=== PATIENT | female | born 2000 | race Caucasian/White ===

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

== ENCOUNTER → 2022-09-09 | Outpatient (CLI) | payer MEDICAID, OTHER ==
[2022-09-09 14:40] LABS: Basophils # (A) 0.03 X 10*3/uL (0.00-0.10); Basophils % (A) 0.3 %; Eosinophils # (A) 0.15 X 10*3/uL (0.04-0.35); Eosinophils % (A) 1.7 %; HCT 40.2 % (37.2-46.3); HGB 11.4 g/dL (12.0-15.0); Immature Grans, Automated 0.3 %; Lymphocytes # (A) 1.96 X 10*3/uL (0.90-5.00); Lymphocytes % (A) 22.2 %; MCH 21.2 pg (27.0-32.0); MCHC 28.4 g/dL (32.0-37.0); MCV 74.9 fL (80.0-97.0); Mean Platelet Volume 10.2 fL (9.5-12.2); Monocytes % (A) 4.5 %; NRBC Per 100 WBC 0 /100 WBCS (0.0-0.0); Neutrophils # (A) 6.26 X 10*3/uL (1.80-7.70); Platelet Count 350 X 10*3/uL (140-440); RBC 5.37 X 10*6/uL (4.10-5.20); RDW 20.3 % (11.5-14.5); WBC 8.83 X 10*3/uL (4.50-10.00)
[2022-09-09 15:29] LABS: % Iron Saturation 5.95 (12.00-45.00); ALT 29 U/L (8-44); AST 24 U/L (13-35); African American GFR (CKD) 142.1 (60.0-200.0); Albumin/Globulin Ratio 1.16 (1.60-3.17); Alkaline Phosphatase 69 U/L (41-126); BUN/Creat Ratio 12.42 Ratio (12.00-20.00); Blood Urea Nitrogen 8.8 mg/dL (9.0-27.0); Calcium 9.6 mg/dL (8.7-10.3); Carbon Dioxide 20.7 mmol/L (20.0-27.5); Chloride 105 mmol/L (96-109); Ferritin 50.7 ng/mL (10.0-291.0); Globulin 3.5 g/dL (1.6-3.3); Glucose 83 mg/dL (70-110); Iron 20 ug/dL (50-170); Non-African American GFR(CKD) 122.6 (60.0-200.0); Potassium 4.4 mmol/L (3.5-5.5); Sodium 139 mmol/L (135-145); Total Iron Binding Capacity 336 ug/dL (228-460); Total Protein 7.5 g/dL (6.2-8.2)
== END | disposition home or self-care (01) ==
LOC: LABWHC1 10:32
PROVIDERS: ATTEND Family Medicine
DX: Z09 Encounter for follow-up examination after completed treatment for conditions other than malignant neoplasm (principal); I82.403 Acute embolism and thrombosis of unspecified deep veins of lower extremity, bilateral; I82.422 Acute embolism and thrombosis of left iliac vein; R20.8 Other disturbances of skin sensation
CPT/HCPCS: 36415; 80053; 82607; 82728; 83036; 83540; 83550; 84443; 85025

== ENCOUNTER 2022-11-14 22:03 | Emergency (ER) | payer MEDICAID, OTHER ==
[2022-11-14 22:09] VITALS: TEMP 97.9
[2022-11-14] MEDS ORDERED: ASPIRIN 81 MG PO STA (22:25)
[2022-11-14] MEDS ORDERED: KETOROLAC 15 MG/ML 1 ML VIAL IVP STA (22:26)
[2022-11-14 23:01] LABS: Basophils # (A) 0.1 k/uL (0-0.2); Basophils % (A) 1 %; Eosinophils # (A) 0.2 k/uL (0-0.7); Eosinophils % (A) 2 %; HCT 37.2 % (34.0-46.0); HGB 11.4 gm/dL (11.4-16.0); Hypochromasia Moderate; Lymphocytes # (A) 2.5 k/uL (1.0-4.8); Lymphocytes % (A) 27 %; MCH 21.8 pg (25.0-35.0); MCHC 30.6 g/dL (31.0-37.0); MCV 71.2 fL (80.0-100.0); Mean Platelet Volume 7.5; Microcytosis Moderate; Monocytes # (A) 0.4 k/uL (0-1.0); Monocytes % (A) 4 %; Neutrophils # (A) 6.2 k/uL (1.3-7.7); Neutrophils % (A) 66 %; Platelet Count 342 k/uL (150-450); RBC 5.23 m/uL (3.80-5.40); RDW 15.6 % (11.5-15.5); WBC 9.4 k/uL (4.0-11.0)
[2022-11-14 23:09] LABS: African American GFR (CKD) >90 (>60 ml/min/1.73 sqM); Amylase 43 U/L (30-110); Anion Gap 10 mmol/L; Blood Urea Nitrogen 15 mg/dL (7-17); Carbon Dioxide 23 mmol/L (22-30); Chloride 107 mmol/L (98-107); Glucose 111 mg/dL (74-99); Non-African American GFR(CKD) >90 (>60 ml/min/1.73 sqM); Sodium 140 mmol/L (137-145); Total Protein 7.6 g/dL (6.3-8.2)
[2022-11-14 23:10] LABS: ALT 19 U/L (4-34); AST 15 U/L (14-36); Alkaline Phosphatase 68 U/L (38-126); Calcium 9.2 mg/dL (8.4-10.2); Lipase 95 U/L (23-300); Magnesium 2.1 mg/dL (1.6-2.3); Total Bilirubin 0.3 mg/dL (0.2-1.3)
[2022-11-14 23:32] VITALS: BP 136/72; PULSE 100; RESP 12
[2022-11-14 23:33] LABS: INR 0.9 (<1.2); Partial Thromboplastin Time 26.1 sec (22.0-30.0); Prothrombin Time 9.7 sec (9.0-12.0)
--- NOTE | 2022-11-14 23:44 | XR ---
EXAMINATION TYPE: XR chest 2V DATE OF EXAM: 11/14/2022 COMPARISON: None HISTORY: Chest pain TECHNIQUE: 2 views FINDINGS: Heart and mediastinum are normal. Lungs are clear. Diaphragm is normal. Bony thorax appears normal. IMPRESSION: Normal chest.
--- NOTE | 2022-11-14 23:46 | ED ---
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 Describes it as a tightness sensation located substernally with radiation towards both sides of her chest. Also has had some shortness of breath over the last day or so. Does have a h istory of PE. Her mother as well as her concerned that she may have a PE despite being compliant with anticoagulation. There is any worsening lower extremity edema. Denies any nausea or vomiting. Denies any abdominal pain. Denies any headaches. No other acute complaints at this time. No other symptoms at this time. Denies cough or fevers. Presents for further evaluation at this time. Blood clotting disorders run in the family.No known palliative or provocative factors for her symptoms. - Related Data Previous Rx's Medication Instructions Recorded Apixaban [Eliquis Starter Pack 5 - 10 mg PO DIRECTED 30 Days 08/06/22 (for VTE)] #1 each Docusate [Colace] 100 mg PO DAILY PRN #30 cap 08/06/22 Ferrous Sulfate [Iron (65 MG 325 mg PO DAILY #30 tab 08/06/22 Elemental)] HYDROcodone/APAP 5-325MG [[place] 1 each PO Q6HR PRN 3 Days #12 tab 08/06/22 5-325] Allergies Allergy/AdvReac Type Severity Reaction Status Date / Time No Known Allergies Allergy Verified 11/14/22 22:04 Review of Systems ROS Statement: Those systems with pertinent positive or pertinent negative responses have been documented in the HPI. Review of Systems: CONST: Denies fever EYES: Denies blurry vision ENT: Denies nasal congestion C/V: Endorses intermittent chest pain RESP: Endorses shortness of breath GI: Denies abdominal pain : Denies dysuria SKIN: Denies rash. MSK: Denies joint pain. NEURO: Denies headache ROS Other: All systems not noted in ROS Statement are negative. Past Medical History Past Medical History: Deep Vein Thrombosis (DVT), Pulmonary Embolus (PE) Additional Past Medical History / Comment(s): OPTIC NERVE HYPOPLASIA History of Any Multi-Drug Resistant Organisms: None Reported Past Surgical History: No Surgical Hx Reported Past Anesthesia/Blood Transfusion Reactions: No Reported Reaction Past Psychological History: No Psychological Hx Reported Smoking Status: Never smoker Past Alcohol Use History: None Reported Past Drug Use History: None Reported General Exam - General Exam Comments Initial Comments: General: Appears in no acute distress.. Patient is obese. HEAD: Normal with no signs of head trauma. EYES: Blind legally. No change. ENT: Hearing grossly intact, normal oropharynx. RESPIRATORY: Clear breath sounds bilaterally. No wheezes, rales, or rhonchi. No respiratory distress. No hypoxia. C/V: Regular rate and rhythm. S1 and S2 auscultated, no edema, peripheral pulses 2+ and intact throughout ABD: Abd is soft, nontender, nondistended EXT: Normal range of motion, no obvious deformity SKIN: No rashes or lesions observed on exposed skin. NEURO: Alert and oriented x 4. No acute focal deficits. Limitations: no limitations Course Vital Signs 11/14/22 11/14/22 11/14/22 22:04 22:54 23:30 Temperature 97.9 F Pulse Rate 109 H 100 Pulse Rate [ 104 H Apical] Respiratory 18 12 Rate Blood Pressure 143/79 136/72 O2 Sat by Pulse 98 98 Oximetry Medical Decision Making - Medical Decision Making Based on the patient's presentation and physical exam, I'm concerned for possible cardiopulmonary etiology for her current symptoms. Family and patient are concerned for possible blood clot is noted is possible to have breakthrough blood clots despite being compliant with anticoagulation. They're requesting workup for possible blood clot. We'll start with a d-dimer in addition to cardiology labs. They were in agreement this plan. Covid, flu, RSV swabs will be obtained as well. Chest x-ray will be obtained. Patient was in agreement this plan. Vital signs within acceptable limits. No respiratory distress. She will receive Toradol as well as aspirin. EKG showed no signs of acute ischemia.Patient's chest x-ray revealed no acute cardio pulmonary process. Laboratory studies are remarkable for a undetectable troponin. BNP within normal limits. D-dimer is undetectable. Patient has flu, RSV, Covid negative. At this time I updated the patient. We discussed her negative workup. She said multiple days of chest pain symptoms with a negative cardiac workup. D-dimer is undetectable. If no concern for PE or requirement for admission at this time. She was in agreement this plan. Patient's heart score is low at 1. I believe it is safer to be discharged home. Patient's chest pain did improve with Toradol. She was in agreement with this plan. Strict return precautions were discussed. I want her to follow up with her primary care physician the next 1-2 days. I instructed the patient to follow up with their PCP in the next 1-3 days. I explained that the patient should return to the emergency department if they experience any worsening symptoms. Strict return precautions were discussed with the patient. The patient expressed understanding of these instructions. I answered all questions that the patient had. The patient was discharged home in good condition with their prescriptions and follow up information. Was pt. sent in by a medical professional or institution (, PA, LEASE PURCHASE TRUCK DRIVER, urgent care, hospital, or usp...) When possible be specific @ -No Did you speak to anyone other than the patient for history (EMS, parent, family, police, friend...)? What history was obtained from this source @ -Yes, patient's mother who helps with patient's past medical history. Did you review nursing and triage notes (agree or disagree)? Why? @ -I reviewed and agree with nursing and triage notes Were old charts reviewed (outside hosp., previous admission, EMS record, old EKG, old radiological studies, urgent care reports/EKG's, usp records)? Report findings @ -Yes, old charts and EKG were reviewed. Differential Diagnosis (chest pain, altered mental status, abdominal pain women, abdominal pain men, vaginal bleeding, weakness, fever, dyspnea, syncope, headache, dizziness, GI bleed, back pain, seizure, CVA, palpatations, mental health)? @ -Differential Chest Pain: Stable Angina, Unstable Angina, STEMI, NSTEMI Aortic Dissection, Pneumothorax, Musculoskeletal, Esophageal Spasm GERD, Cholecystitis, Pancreatitis, Zoster, pulmonary embolism this is not meant to be an all-inclusive list. EKG interpreted by me (3pts min.). @ -As above X-rays interpreted by me (1pt min.). @ -Chest x-ray revealed no acute cardiopulmonary process. CT interpreted by me (1pt min.). @ -None done U/S interpreted by me (1pt. min.). @ -None done What testing was considered but not performed or refused? (CT, X-rays, U/S, labs)? Why? @ -None What meds were considered but not given or refused? Why? @ -None Did you discuss the management of the patient with other professionals (professionals i.e. DrRichie, PA, LEASE PURCHASE TRUCK DRIVER, lab, RT, psych nurse, social welfare research worker, head stock transfer clerk, teacher, human resource officer, rn field case manager)? Give summary @ -No Was smoking cessation discussed for >3mins.? @ -No Was critical care preformed (if so, how long)? @ -No Were there social determinants of health that impacted care today? How? (Homelessness, low income, unemployed, alcoholism, drug addiction, transportation, low edu. Level, literacy, decrease access to med. care, retirement, rehab)? @ -No Was there de-escalation of care discussed even if they declined (Discuss DNR or withdrawal of care, Hospice)? DNR status @ -No What co-morbidities impacted this encounter? (DM, HTN, Smoking, COPD, CAD, Cancer, CVA, ARF, Chemo, Hep., AIDS, mental health diagnosis, sleep apnea, morbid obesity)? @ -Patient's history of PE on blood thinners. Compliant with medications. Was patient admitted / discharged? Hospital course, mention meds given and route, prescriptions, significant lab abnormalities, going to OR and other pertinent info. @ -Discharged home. See ED course above. Undiagnosed new problem with uncertain prognosis? @ -No Drug Therapy requiring intensive monitoring for toxicity (Heparin, Nitro, Insulin, Cardizem)? @ -No Were any procedures done? @ -No Diagnosis/symptom? @ -Chest pain of unknown etiology Acute, or Chronic, or Acute on Chronic? @ -Acute Uncomplicated (without systemic symptoms) or Complicated (systemic symptoms)? @ -Uncomplicated Side effects of treatment? @ -No Exacerbation, Progression, or Severe Exacerbation? @ -No Poses a threat to life or bodily function? How? (Chest pain, [place], [place], pneumonia, PE, COPD, DKA, ARF, appy, cholecystitis, CVA, Diverticulitis, Homicidal, Suicidal, threat to staff... and all critical care pts) @ -No Diagnosis/symptom? @ -History of pulmonary embolism on blood thinners Acute, or Chronic, or Acute on Chronic? @ -Chronic Uncomplicated (without systemic symptoms) or Complicated (systemic symptoms)? @ -Uncomplicated Side effects of treatment? @ -none Exacerbation, Progression, or Severe Exacerbation] @ -no Poses a threat to life or bodily function? @ -no - Lab Data Result diagrams: 11/14/22 22:53 11/14/22 22:53 Lab Results 11/14/22 11/14/22 11/14/22 Range/Units 22:53 22:53 22:53 WBC 9.4 (4.0-11.0) k/uL RBC 5.23 (3.80-5.40) m/uL Hgb 11.4 (11.4-16.0) gm/dL Hct 37.2 (34.0-46.0) % MCV 71.2 L (80.0-100.0) fL MCH 21.8 L (25.0-35.0) pg MCHC 30.6 L (31.0-37.0) g/dL RDW 15.6 H (11.5-15.5) % Plt Count 342 (150-450) k/uL MPV 7.5 Neutrophils % 66 % Lymphocytes % 27 % Monocytes % 4 % Eosinophils % 2 % Basophils % 1 % Neutrophils # 6.2 (1.3-7.7) k/uL Lymphocytes # 2.5 (1.0-4.8) k/uL Monocytes # 0.4 (0-1.0) k/uL Eosinophils # 0.2 (0-0.7) k/uL Basophils # 0.1 (0-0.2) k/uL Hypochromasia Moderate Microcytosis Moderate PT 9.7 (9.0-12.0) sec INR 0.9 (<1.2) APTT 26.1 (22.0-30.0) sec D-Dimer <0.17 (<0.60) mg/L FEU Sodium 140 (137-145) mmol/L Potassium 4.0 (3.5-5.1) mmol/L Chloride 107 (98-107) mmol/L Carbon Dioxide 23 (22-30) mmol/L Anion Gap 10 mmol/L BUN 15 (7-17) mg/dL Creatinine 0.78 (0.52-1.04) mg/dL Est GFR (CKD-EPI)AfAm >90 (>60 ml/min/1.73 sqM) Est GFR (CKD-EPI)NonAf >90 (>60 ml/min/1.73 sqM) Glucose 111 H (74-99) mg/dL Calcium 9.2 (8.4-10.2) mg/dL Magnesium 2.1 (1.6-2.3) mg/dL Total Bilirubin 0.3 (0.2-1.3) mg/dL AST 15 (14-36) U/L ALT 19 (4-34) U/L Alkaline Phosphatase 68 (38-126) U/L Troponin I (0.000-0.034) ng/mL NT-Pro-B Natriuret Pep pg/mL Total Protein 7.6 (6.3-8.2) g/dL Albumin 4.0 (3.5-5.0) g/dL Amylase 43 (30-110) U/L Lipase 95 (23-300) U/L Influenza Type A (PCR) (Not Detectd) Influenza Type B (PCR) (Not Detectd) RSV (PCR) (Not Detectd) SARS-CoV-2 (PCR) (Not Detectd) 11/14/22 11/14/22 11/14/22 Range/Units 22:53 22:53 22:53 WBC (4.0-11.0) k/uL RBC (3.80-5.40) m/uL Hgb (11.4-16.0) gm/dL Hct (34.0-46.0) % MCV (80.0-100.0) fL MCH (25.0-35.0) pg MCHC (31.0-37.0) g/dL RDW (11.5-15.5) % Plt Count (150-450) k/uL MPV Neutrophils % % Lymphocytes % % Monocytes % % Eosinophils % % Basophils % % Neutrophils # (1.3-7.7) k/uL Lymphocytes # (1.0-4.8) k/uL Monocytes # (0-1.0) k/uL Eosinophils # (0-0.7) k/uL Basophils # (0-0.2) k/uL Hypochromasia Microcytosis PT (9.0-12.0) sec INR (<1.2) APTT (22.0-30.0) sec D-Dimer (<0.60) mg/L FEU Sodium (137-145) mmol/L Potassium (3.5-5.1) mmol/L Chloride (98-107) mmol/L Carbon Dioxide (22-30) mmol/L Anion Gap mmol/L BUN (7-17) mg/dL Creatinine (0.52-1.04) mg/dL Est GFR (CKD-EPI)AfAm (>60 ml/min/1.73 sqM) Est GFR (CKD-EPI)NonAf (>60 ml/min/1.73 sqM) Glucose (74-99) mg/dL Calcium (8.4-10.2) mg/dL Magnesium (1.6-2.3) mg/dL Total Bilirubin (0.2-1.3) mg/dL AST (14-36) U/L ALT (4-34) U/L Alkaline Phosphatase (38-126) U/L Troponin I <0.012 (0.000-0.034) ng/mL NT-Pro-B Natriuret Pep 36 pg/mL Total Protein (6.3-8.2) g/dL Albumin (3.5-5.0) g/dL Amylase (30-110) U/L Lipase (23-300) U/L Influenza Type A (PCR) Not Detected (Not Detectd) Influenza Type B (PCR) Not Detected (Not Detectd) RSV (PCR) Not Detected (Not Detectd) SARS-CoV-2 (PCR) Not Detected (Not Detectd) - EKG Data -: EKG Interpreted by Me EKG Comments: 12-lead Electrocardiogram Interpretation Note EKG was reviewed and interpreted by myself. 12-lead ECG performed at 2218 is interpreted by me as revealing sinus tachycardia at a rate of 105 beats per minute. [place] is normal. CO interval is 156 ms, QRS duration is 82 ms, QTc is 388 ms.. There were no ST or T wave abnormalities to suggest myocardial ischemia or injury. R wave progression across the precordium was satisfactory. By my interpretation this EKG is non-diagnostic for acute ischemia. When compared with EKG from February 2021, no significant change. Disposition Clinical Impression: Chest pain of unknown etiology, Chest wall pain, History of pulmonary embolism Disposition: HOME SELF-CARE Condition: Good Instructions (If sedation given, give patient instructions): Chest Pain (ED) Is patient prescribed a controlled substance at d/c from ED?: No Referrals: Jessenia Quesada MD [Primary Care Provider] - 1-2 days Time of Disposition: 00:40
== END 2022-11-15 01:28 | disposition home or self-care (01) ==
LOC: EC 22:03
DX: R07.89 Other chest pain (principal); Z86.711 Personal history of pulmonary embolism; Z86.718 Personal history of other venous thrombosis and embolism; Z20.822 Contact with and (suspected) exposure to COVID-19
CPT/HCPCS: 36415; 93005; 85379; 83880; 80053; 82150; 83690; 83735; 84484; 85025; 85610; 85730; 87636; 71046; 99285; 96374; J1885

== ENCOUNTER → 2023-01-24 | Outpatient (CLI) | payer MEDICAID, OTHER ==
--- NOTE | 2023-01-24 14:00 | US ---
EXAMINATION TYPE: US pelvic complete DATE OF EXAM: 01/24/2023 COMPARISON: US CLINICAL HISTORY: N91.1 SECONDARY AMENORRHEA. Secondary amenorrhea. Patient has not had a period sinc e July. TECHNIQUE: Transabdominal (TA). Date of LMP: LMP was in July. EXAM MEASUREMENTS: Uterus: 8.5 x 4.0 x 3.1 cm Endometrial Stripe: 0.31 cm Right Ovary: 3.0 x 1.5 x 1.5 cm Left Ovary: 4.1 x 2.0 x 1.7 cm 1. Uterus: Anteverted 2. Endometrium: Measures 0.31 cm. 3. Right Ovary: Appears wnl 4. Left Ovary: Appears wnl 5. Bilateral Adnexa: Appear wnl 6. Posterior cul-de-sac: Appears wnl IMPRESSION: No discrete abnormality seen.
== END | disposition home or self-care (01) ==
LOC: RADUSWWP 13:17
PROVIDERS: ATTEND Obstetrics & Gynecology
DX: N91.1 Secondary amenorrhea (principal)
CPT/HCPCS: 76856

== ENCOUNTER → 2023-04-14 | Outpatient (CLI) | payer MEDICAID, OTHER ==
[2023-04-14 17:40] LABS: HCT 39.6 % (37.2-46.3); MCH 20.6 pg (27.0-32.0); MCHC 27.8 d/dL (32.0-37.0); MCV 74.2 FL (80.0-97.0); Mean Platelet Volume 11.1 FL (9.5-12.2); NRBC Per 100 WBC 0 X 10*3/uL (0.00-0.01); Platelet Count 321 X 10*3/uL (140-440); RBC 5.34 X 10*6/uL (4.10-5.20); RDW 18.3 % (11.5-14.5); WBC 6.78 X 10*3/uL (4.50-10.00)
[2023-04-14 18:05] LABS: Basophils # (A) 0.04 X 10*3/uL (0.00-0.10); Basophils % (A) 0.6 %; Eosinophils # (A) 0.14 X 10*3/uL (0.04-0.35); Eosinophils % (A) 2.1 %; Immature Grans, Automated 0 %; Lymphocytes # (A) 2.06 X 10*3/uL (0.90-5.00); Lymphocytes % (A) 30.4 %; Monocytes # (A) 0.37 X 10*3/uL (0.20-1.00); Monocytes % (A) 5.5 %; Neutrophils # (A) 4.17 X 10*3/uL (1.80-7.70); Neutrophils % (A) 61.4 %
[2023-04-15 02:41] LABS: HIV 2 AB Non-Reactive (Non-Reactive); HIV AB P24 Non-Reactive (Non-Reactive); HIV P24 AG Non-Reactive (Non-Reactive)
[2023-04-15 18:32] LABS: ALT 31 U/L (8-44); AST 15 U/L (13-35); Albumin 4.2 d/dL (3.8-4.9); Albumin/Globulin Ratio 1.31 Ratio (1.60-3.17); Alkaline Phosphatase 80 U/L (41-126); BUN/Creat Ratio 14.22 Ratio (12.00-20.00); Blood Urea Nitrogen 12.8 mg/dL (9.0-27.0); Calcium 9.5 mg/dL (8.7-10.3); Carbon Dioxide 21.1 mmol/L (21.6-31.8); Chloride 106 mmol/L (96-109); Chol/HDL Ratio 3.29 Ratio; Globulin 3.2 d/dL (1.6-3.3); Glucose 81 mg/dL (70-110); LDL Cholesterol,Calculated 79.6 mg/dL (0.0-131.0); Potassium 4.2 mmol/L (3.5-5.5); Sodium 142 mmol/L (135-145); Total Bilirubin 0.2 mg/dL (0.3-1.2); Total Protein 7.4 d/dL (6.2-8.2); VLDL Calculation 15.06 mg/dL (5.00-40.00)
[2023-04-16 05:23] LABS: Hepatitis C IgG Antibody Nonreactive
[2023-04-16 05:24] LABS: Hepatitis B Surface Antigen Nonreactive
== END | disposition home or self-care (01) ==
LOC: LABWHC1 08:35
PROVIDERS: ATTEND Family Medicine
DX: Z11.59 Encounter for screening for other viral diseases (principal); Z11.4 Encounter for screening for human immunodeficiency virus [HIV]; E66.01 Morbid (severe) obesity due to excess calories; M25.572 Pain in left ankle and joints of left foot; Z68.44 Body mass index [BMI] 60.0-69.9, adult; Z71.3 Dietary counseling and surveillance; Z71.82 Exercise counseling
CPT/HCPCS: 36415; 80053; 80061; 82306; 83036; 84443; 85025; 86780; 86803; 87340; 87390

== ENCOUNTER → 2023-06-10 | Outpatient (CLI) | payer MEDICAID, OTHER ==
[2023-06-10 21:25] LABS: HCT 38.3 % (37.2-46.3); MCH 21.1 pg (27.0-32.0); MCHC 28.7 d/dL (32.0-37.0); MCV 73.5 FL (80.0-97.0); Mean Platelet Volume 10.7 FL (9.5-12.2); NRBC Per 100 WBC 0 X 10*3/uL (0.00-0.01); Platelet Count 308 X 10*3/uL (140-440); RBC 5.21 X 10*6/uL (4.10-5.20); RDW 17.9 % (11.5-14.5); WBC 6.59 X 10*3/uL (4.50-10.00)
[2023-06-10 21:39] LABS: % Iron Saturation 7.6 (12.00-45.00); Ferritin 22.8 ng/mL (10.0-291.0)
[2023-06-10 22:06] LABS: Basophils # (A) 0.06 X 10*3/uL (0.00-0.10); Basophils % (A) 0.9 %; Eosinophils # (A) 0.18 X 10*3/uL (0.04-0.35); Eosinophils % (A) 2.7 %; Lymphocytes % (A) 27.3 %; Monocytes # (A) 0.32 X 10*3/uL (0.20-1.00); Monocytes % (A) 4.9 %; Neutrophils # (A) 4.21 X 10*3/uL (1.80-7.70); Neutrophils % (A) 63.9 %; RBC Morphology Normal (Normal)
== END | disposition home or self-care (01) ==
LOC: LABWHC1 11:00
PROVIDERS: ATTEND Family Medicine
DX: R79.89 Other specified abnormal findings of blood chemistry (principal)
CPT/HCPCS: 36415; 82607; 82728; 82746; 83540; 83550; 85025

== ENCOUNTER → 2023-06-24 | Outpatient (CLI) | payer MEDICAID, OTHER ==
[2023-06-24 14:38] VITALS: BP 130/76; PULSE 85; BMI 60.3
--- NOTE | 2023-06-24 16:46 | P.HPBAR ---
Bariatric H&P - History & Physicial H&P Date: 06/24/23 History & Physicial: Visit/CC: initial clinic visit Patient initial contact: Initial weight: Initial weight in pounds: Height: 5 ft 8 in Initial BMI: Last weight: Current weight: 180.076 kg Current weight in pounds: 397.00 Current BMI: 60.3 [place] body weight (based on NIH guidelines): 63.503 kg Excess body weight loss: The patient is a 23 year-old F who presents for Bariatric Assessment. Patient comes in today to discuss weight loss surgery options. She says she is interested in sleeve gastrectomy. Her grandmother had a sleeve gastrectomy and did well. Her mother is a nurse at [employer] and it sounds like that is the surgery that her mother would prefer she have. 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 She is relatively healthy other than a lower extremity DVT that required surgery 1 year ago. Patient had PE at that time as well. Remains on eloquis. No tobacco use. No dysphagia. Minimal reflux symptoms. BMI today 60.4. Review of Systems The patient denies any acute changes in hearing, no dysphagia or odynophagia, no chest pain or shortness of breath, no dysuria or hematuria, no headache, no runny nose, no rectal bleeding or melena, no unexplained weight loss Past Medical History Past Medical History: Deep Vein Thrombosis (DVT), Pulmonary Embolus (PE) Additional Past Medical History / Comment(s): OPTIC NERVE HYPOPLASIA History of Any Multi-Drug Resistant Organisms: None Reported Past Surgical History: No Surgical Hx Reported Past Anesthesia/Blood Transfusion Reactions: No Reported Reaction Past Psychological History: No Psychological Hx Reported Smoking Status: Never smoker Past Alcohol Use History: None Reported Past Drug Use History: None Reported Surgical - Exam Vital Signs Pulse BP 85 130/76 06/24/23 14:35 06/24/23 14:35 Physical exam: General: Well-developed, well-nourished HEENT: Normocephalic, sclerae nonicteric Abdomen: Nontender, nondistended Extremities: No edema Neuro: Alert and oriented Bariatric Assessment & Plan (1) Morbid obesity Narrative/Plan: 23-year-old female with morbid obesity and comorbidities. Patient with significant comorbidity of previous DVT and PE. Remains on eloquis for that reason. Discuss surgical options in detail with the patient. Unfortunately her mother and grandmother were not available for the discussion. Patient remains interested in sleeve gastrectomy at this time. Discussed average weight loss with both surgeries in detail as well and patient will consider surgical options further now that she realizes she would lose more weight likely with gastric bypass. In the meanwhile we'll schedule for upper endoscopy. We'll discuss patient's surgical options further with her mother or grandmother at that time we see her for the procedure. Status: Acute Bariatric Checklist Checklist: Plan: Checklist: EGD: 1. Hiatal hernia: 2. H. Pylori: HgbA1c: Vitamin D: Smoking: Never smoker Primary care physician referral: Dr. Guevara Psychiatry clearance: Cardiology clearance: Sleep study: Diet journal: VTE risk score: VTE risk level: Rehab needs at discharge:
== END ==
LOC: BARWHC3 13:58
PROVIDERS: ATTEND Surgery
DX: E66.01 Morbid (severe) obesity due to excess calories (principal); Z86.718 Personal history of other venous thrombosis and embolism; Z79.01 Long term (current) use of anticoagulants; Z68.44 Body mass index [BMI] 60.0-69.9, adult
CPT/HCPCS: 99211

== ENCOUNTER 2023-08-05 10:05 | Day surgery (SDC) | payer MEDICAID, OTHER ==
[2023-07-29 16:27] VITALS: BMI 59.9
[~2023-08-05 10:05] MED LIST: LACTATED RINGERS 1,000 ML IV SCH; LIDOCAINE 1% (10MG/ML) FOR IV START INTRADERMA PRN
[2023-08-05] MEDS ORDERED: PROPOFOL 10 MG/ML 20 ML VIAL IV ONE (10:33)
[2023-08-05] MEDS ORDERED: LIDOCAINE 1% INJ 10MG/ML (20 ML MDV) ONE (10:33)
[2023-08-05] MEDS ORDERED: KETAMINE HCL IN 0.9 % NACL 50 MG/5 ML SYRINGE ONE (10:33)
--- NOTE | 2023-08-05 10:35 | P.GSHP ---
History of Present Illness H&P Date: 08/05/23 Chief Complaint: GERD 23-year-old female here for EGD. Seen in the bariatric center for possible surgery. Mild reflux symptoms. No dysphagia. 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-pt signs own consents,DVT left leg r/t birthcontrol and amanda small PEs-2021 History of Any Multi-Drug Resistant Organisms: None Reported Past Surgical History: No Surgical Hx Reported Additional Past Surgical History / Comment(s): MRI of brain Past Anesthesia/Blood Transfusion Reactions: No Reported Reaction Additional Past Anesthesia/Blood Transfusion Reaction / Comment(s): no hx blood transfusion Smoking Status: Never smoker - Past Family History Mother Family Medical History: No Reported History Father Family Medical History: Deep Vein Thrombosis (DVT) Medications and Allergies Home Medications Medication Instructions Recorded Confirmed Type Ferrous Sulfate [Iron (65 MG 325 mg PO DAILY #30 tab 08/06/22 08/05/23 Rx Elemental)] Ergocalciferol [Vitamin D2 (1250 50,000 unit PO WEEKLY 06/24/23 08/05/23 History Mcg = 04400 Iu)] Folic Acid 1 mg PO DAILY 06/24/23 08/05/23 History Apixaban [Eliquis Starter Pack 5 mg PO BID 07/29/23 08/05/23 History (for VTE)] Allergies Allergy/AdvReac Type Severity Reaction Status Date / Time No Known Allergies Allergy Verified 07/29/23 16:01 Surgical - Exam Vital Signs Temp Pulse Resp BP Pulse Ox 96.7 F L 99 16 134/58 94 L 08/05/23 10:25 08/05/23 10:25 08/05/23 10:25 08/05/23 10:25 08/05/23 10:25 Physical exam: General: Well-developed, well-nourished HEENT: Normocephalic, sclerae nonicteric Abdomen: Nontender, nondistended Extremities: No edema Neuro: Alert and oriented Assessment and Plan (1) GERD (gastroesophageal reflux disease) Narrative/Plan: Proceed with EGD at this time Current Visit: Yes Status: Acute Code(s): K21.9 - GASTRO-ESOPHAGEAL REFLUX DISEASE WITHOUT ESOPHAGITIS SNOMED Code(s): 709522447
[2023-08-05 10:36] VITALS: RESP 16; TEMP 96.7
--- NOTE | 2023-08-05 10:46 | P.PCN ---
Date of Procedure: 08/05/23 Procedure(s) Performed: Preoperative Dx: GERD, presurgical Postoperative Dx: Mild gastritis Procedure: EGD with Bx Anesthesia: Sedation Endoscopist: Dr. Eli Specimens: Antrum Endoscopic Procedure: The patient was on the endoscopy table in the left decubitus position. The Olympus gastroscope was inserted into the oropharynx and passed under direct visualization to the region of the third portion of the duodenum. From that point the scope was slowly withdrawn inspecting all surfaces carefully. There were no neoplastic inflammatory or polypoid lesions throughout the duodenum. The pylorus was widely patent. The stomach was carefully inspected. There was mild gastritis present. A biopsy of the antrum took place to rule out H. pylori. Retroflexion revealed a normal hiatus. The esophagus was then carefully examined. There were no neoplastic inflammatory or polypoid lesions throughout the visualized esophagus. The patient was then taken to the recovery room in stable condition per anesthesia guidelines. Recommendations: Await biopsy results. Continue presurgical workup
[2023-08-05 11:08] VITALS: BP 126/72; PULSE 86
== END 2023-08-05 11:38 | disposition home or self-care (01) ==
LOC: ORWHC2ENDO 10:05
PROVIDERS: ATTEND Surgery
DX: K29.50 Unspecified chronic gastritis without bleeding (principal); K21.9 Gastro-esophageal reflux disease without esophagitis; E66.01 Morbid (severe) obesity due to excess calories; Z86.718 Personal history of other venous thrombosis and embolism; Z86.711 Personal history of pulmonary embolism; Z79.01 Long term (current) use of anticoagulants; Z79.899 Other long term (current) drug therapy; Z68.44 Body mass index [BMI] 60.0-69.9, adult
CPT/HCPCS: 81025; 88305; 43239; J2001; J2704

== ENCOUNTER → 2023-09-23 | Outpatient (CLI) | payer MEDICAID, OTHER ==
[2023-09-23 14:39] VITALS: BP 140/65; PULSE 89; RESP 16; TEMP 98; BMI 61.4
--- NOTE | 2023-09-23 14:46 | P.BASOAP ---
Subjective Progress Note Date: 09/23/23 Principal diagnosis: Morbid obesity 23-year-old female returns after recent preoperative EGD. She is here today with her mother. The patient is blind. Her mother is a nurse. They remain interested in sleeve gastrectomy. Biopsies on the EGD were negative. No hiatal hernia was seen. Objective - Vital Signs Vital signs: Vital Signs Temp 98 F 09/23/23 14:08 Pulse 89 09/23/23 14:08 Resp 16 09/23/23 14:08 BP 140/65 09/23/23 14:08 Pulse Ox FiO2 Intake & Output 09/22/23 09/23/23 09/23/23 18:59 06:59 18:59 Weight 183.251 kg - Exam Abdomen: Soft, nontender, nondistended Assessment/Plan (1) Morbid obesity Narrative/Plan: 23-year-old female with morbid obesity. Patient remains interested in sleeve gastrectomy. Surgical consent form reviewed with the patient and her mother. All questions answered. They will take the consent form home and review it further on their own time. Await upcoming psychiatric evaluation. Will obtain medical clearance from hematology given the patient's history of previous DVT. Patient will resume anticoagulation post discharge. Plan: Date: 09/23/23 Initial Weight: 183.251 kg Initial BMI: 61.4 Current Weight: 183.251 kg Current BMI: 61.4 Type of Surgery: Total Volume in Band: Previous Volume: Volume Removed: Volume Added: Band Size:
== END ==
LOC: BARWHC3 13:28
PROVIDERS: ATTEND Surgery
DX: E66.01 Morbid (severe) obesity due to excess calories (principal); Z86.718 Personal history of other venous thrombosis and embolism; Z79.01 Long term (current) use of anticoagulants
CPT/HCPCS: 99211

== ENCOUNTER → 2023-11-12 | Outpatient (CLI) | payer MEDICAID, OTHER ==
[2023-11-12 15:30] LABS: Basophils # (A) 0.05 X 10*3/uL (0.00-0.10); Basophils % (A) 0.6 %; Eosinophils # (A) 0.15 X 10*3/uL (0.04-0.35); Eosinophils % (A) 1.7 %; HGB 11.4 g/dL (12.0-15.0); Lymphocytes % (A) 24.1 %; MCH 21.3 pg (27.0-32.0); MCHC 29.2 g/dL (32.0-37.0); Mean Platelet Volume 11.4 FL (9.5-12.2); Monocytes # (A) 0.33 X 10*3/uL (0.20-1.00); Monocytes % (A) 3.8 %; NRBC Per 100 WBC 0 X 10*3/uL (0.00-0.01); Neutrophils # (A) 6.06 X 10*3/uL (1.80-7.70); Neutrophils % (A) 69.6 %; Platelet Count 359 X 10*3/uL (140-440); RBC 5.34 X 10*6/uL (4.10-5.20); RDW 17.6 % (11.5-14.5); WBC 8.71 X 10*3/uL (4.50-10.00)
[2023-11-12 15:32] LABS: % Iron Saturation 5.46 (12.00-45.00); ALT 13 U/L (8-44); AST 13 U/L (13-35); Albumin 4.2 g/dL (3.8-4.9); Albumin/Globulin Ratio 1.27 Ratio (1.60-3.17); Alkaline Phosphatase 77 U/L (41-126); BUN/Creat Ratio 18.14 Ratio (12.00-20.00); Blood Urea Nitrogen 12.7 mg/dL (9.0-27.0); Calcium 9.4 mg/dL (8.7-10.3); Carbon Dioxide 18.8 mmol/L (21.6-31.8); Chloride 105 mmol/L (96-109); Chol/HDL Ratio 2.53 Ratio; Ferritin 19.4 ng/mL (10.0-291.0); Globulin 3.3 g/dL (1.6-3.3); Glucose 88 mg/dL (70-110); Iron 22 UG/DL (50-170); Potassium 4.3 mmol/L (3.5-5.5); Sodium 138 mmol/L (135-145); Total Bilirubin 0.3 mg/dL (0.3-1.2); Total Iron Binding Capacity 403 UG/DL (228-460); Total Protein 7.5 g/dL (6.2-8.2); VLDL Calculation 14.52 mg/dL (5.00-40.00)
== END | disposition home or self-care (01) ==
LOC: LABWHC1 07:14
PROVIDERS: ATTEND Family Medicine
DX: E66.01 Morbid (severe) obesity due to excess calories (principal); Z71.3 Dietary counseling and surveillance; Z71.82 Exercise counseling; Z68.44 Body mass index [BMI] 60.0-69.9, adult
CPT/HCPCS: 36415; 80053; 80061; 82607; 82728; 82746; 83036; 83540; 83550; 84443; 85025

== ENCOUNTER → 2024-01-19 | Outpatient (CLI) | payer MEDICAID, OTHER ==
[2024-01-19 18:22] LABS: HCT 40.6 % (37.2-46.3); HGB 11.8 g/dL (12.0-15.0); MCH 21.5 pg (27.0-32.0); MCHC 29.1 g/dL (32.0-37.0); MCV 74.1 FL (80.0-97.0); Mean Platelet Volume 11.1 FL (9.5-12.2); NRBC Per 100 WBC 0 X 10*3/uL (0.00-0.01); Platelet Count 332 X 10*3/uL (140-440); RBC 5.48 X 10*6/uL (4.10-5.20); RDW 18.2 % (11.5-14.5); WBC 7.12 X 10*3/uL (4.50-10.00)
[2024-01-19 18:44] LABS: ALT 34 U/L (8-44); AST 23 U/L (13-35); Albumin 4.4 g/dL (3.8-4.9); Albumin/Globulin Ratio 1.29 Ratio (1.60-3.17); Alkaline Phosphatase 71 U/L (41-126); BUN/Creat Ratio 9.75 Ratio (12.00-20.00); Blood Urea Nitrogen 7.8 mg/dL (9.0-27.0); Carbon Dioxide 21.2 mmol/L (21.6-31.8); Chloride 104 mmol/L (96-109); Globulin 3.4 g/dL (1.6-3.3); Glucose 87 mg/dL (70-110); Potassium 3.9 mmol/L (3.5-5.5); Sodium 140 mmol/L (135-145); Total Bilirubin 0.5 mg/dL (0.3-1.2); Total Protein 7.8 g/dL (6.2-8.2)
[2024-01-19 18:48] LABS: Basophils # (A) 0.04 X 10*3/uL (0.00-0.10); Basophils % (A) 0.6 %; Eosinophils # (A) 0.09 X 10*3/uL (0.04-0.35); Eosinophils % (A) 1.3 %; Lymphocytes # (A) 2.24 X 10*3/uL (0.90-5.00); Lymphocytes % (A) 31.5 %; Monocytes # (A) 0.37 X 10*3/uL (0.20-1.00); Monocytes % (A) 5.2 %; Neutrophils # (A) 4.37 X 10*3/uL (1.80-7.70); Neutrophils % (A) 61.3 %; RBC Morphology Normal (Normal)
== END | disposition home or self-care (01) ==
LOC: LABPAT 08:40
PROVIDERS: ATTEND Surgery
DX: Z01.812 Encounter for preprocedural laboratory examination (principal)
CPT/HCPCS: 36415; 80053; 85025; 86850; 86900; 86901

== ENCOUNTER 2024-01-26 07:30 | Inpatient (IN) | payer MEDICAID, OTHER ==
[~2024-01-26 07:30] MED LIST changes: -LACTATED RINGERS 1,000 ML IV SCH
[2024-01-26] MEDS: LACTATED RINGERS 1,000 ML IV SCH (09:18)
[2024-01-26] MEDS: ENOXAPARIN 40 MG/0.4 ML SYRINGE SQ PRN (09:39)
[2024-01-26] MEDS: ACETAMINOPHEN TAB 500 MG TAB PO PRN (09:39)
[2024-01-26] MEDS: ONDANSETRON 4 MG/2 ML VIAL IVP PRN ×2 (09:39→21:30)
[2024-01-26] MEDS: MIDAZOLAM 2 MG/2 ML VIAL IVP ONE (09:47)
--- NOTE | 2024-01-26 09:53 | P.GSHP ---
History of Present Illness H&P Date: 01/26/24 Chief Complaint: Morbid obesity 23-year-old female here today for elective sleeve gastrectomy. Patient first seen in the office last fall. Her grandmother had a sleeve gastrectomy in the past. Patient has had issues with her weight the majority of her life. Her mother is a nurse at [facility] [employer]. Patient is interested in sleeve gastrectomy. Recent EGD showed minimal gastritis.Patient's BMI 58. Her BMI was 61 for seen. Patient with congenital blindness. History of previous DVT and PE. Patient is on eloquis. 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-pt signs own consents,DVT left leg r/t birthcontrol and amanda small PEs-2021 History of Any Multi-Drug Resistant Organisms: None Reported Past Surgical History: No Surgical Hx Reported Additional Past Surgical History / Comment(s): MRI of brain, recent EGD Past Anesthesia/Blood Transfusion Reactions: No Reported Reaction Additional Past Anesthesia/Blood Transfusion Reaction / Comment(s): no hx blood transfusion Smoking Status: Never smoker - Past Family History Mother Family Medical History: No Reported History Father Family Medical History: Deep Vein Thrombosis (DVT) Medications and Allergies Home Medications Medication Instructions Recorded Confirmed Type Folic Acid 1 mg PO DAILY 06/24/23 01/26/24 History Apixaban [Eliquis Starter Pack 5 mg PO BID 07/29/23 01/26/24 History (for VTE)] Allergies Allergy/AdvReac Type Severity Reaction Status Date / Time No Known Allergies Allergy Verified 01/26/24 09:37 Surgical - Exam Vital Signs Temp Pulse Resp BP Pulse Ox 97.3 F L 75 16 123/57 98 01/26/24 09:39 01/26/24 09:39 01/26/24 09:39 01/26/24 09:39 01/26/24 09:39 Physical exam: General: Well-developed, well-nourished HEENT: Normocephalic, sclerae nonicteric Abdomen: Nontender, nondistended Extremities: No edema Neuro: Alert and oriented Assessment and Plan (1) Morbid obesity Narrative/Plan: 23-year-old female with morbid obesity. We'll proceed with laparoscopic da Gabriella-assisted sleeve gastrectomy, possible open at this time. The risks of bleeding, infection, stenosis, stricture, leak, abscess, fistula formation, peritonitis, poor weight loss, reflux, vomiting, conversion to an open procedure, aborting sleeve gastrectomy, PR, PE, DVT, and were discussed. The patient understands and wishes to proceed. Current Visit: No Status: Acute Code(s): E66.01 - MORBID (SEVERE) OBESITY DUE TO EXCESS CALORIES SNOMED Code(s): 559410779
[2024-01-26] MEDS ORDERED: HYDROmorphone (PF) 1 MG/ML ONE (10:12)
[2024-01-26] MEDS ORDERED: NEOSTIGMINE 1 MG/ML 10 ML VIAL ONE (10:12)
[2024-01-26] MEDS ORDERED: fentaNYL (PF) 50 MCG/ML 2 ML AMP ONE (10:12)
[2024-01-26] MEDS ORDERED: ROCURONIUM 10 MG/ML (5 ML VIAL) IV ONE (10:12)
[2024-01-26] MEDS ORDERED: LIDOCAINE 1% INJ 10MG/ML (20 ML MDV) ONE (10:12)
[2024-01-26] MEDS ORDERED: GLYCOPYRROLATE 0.2 MG/ML 2 ML VIAL ONE (10:12)
[2024-01-26] MEDS ORDERED: SUCCINYLCHOLINE CHLORIDE 200 MG/10 ML VIAL IV ONE (10:12)
[2024-01-26] MEDS ORDERED: PROPOFOL 10 MG/ML 20 ML VIAL IV ONE (10:12)
[2024-01-26] MEDS: ceFAZolin 3 GM in SODIUM CHLORIDE 0.9% 100 ML IVPB PRN (10:15)
[2024-01-26] MEDS: BUPIVACAINE (PF) 0.25% 30 ML VIAL SQ ONE ×2 (10:45)
[2024-01-26] MEDS: HYDROmorphone 0.5 MG/0.5 ML SYRINGE IVP PRN (12:27)
[2024-01-26] MEDS ORDERED: diphenhydrAMINE 50 MG/ML 1 ML VIAL IVP PRN (12:33)
[2024-01-26] MEDS ORDERED: SIMETHICONE 80 MG CHEWABLE PO PRN (12:33)
[2024-01-26] MEDS ORDERED: HYDROmorphone 0.5 MG/0.5 ML SYRINGE IVP PRN (12:33)
[2024-01-26] MEDS ORDERED: NALOXONE 0.4 MG/ML 1 ML VIAL IV PRN (12:33)
[2024-01-26] MEDS ORDERED: HYOSCYAMINE ORAL DROPS 1.875 MG/15 ML BOTTLE PO PRN (12:33)
--- NOTE | 2024-01-26 12:33 | P.OP ---
Date of Procedure: 01/26/24 Procedure(s) Performed: PREOPERATIVE DIAGNOSIS: Morbid obesity POSTOPERATIVE DIAGNOSIS: Same PROCEDURE: Da Gabriella assisted laparoscopic sleeve gastrectomy SURGEON: Sreedhar EBL: 10 cc ANESTHESIA: General COMPLICATIONS: None OPERATIVE PROCEDURE: Patient was placed in the operating table in the supine position. The patient was then placed under general anesthesia at that time. The abdomen was prepped and draped in the usual sterile fashion. A 5 mm optical trocar was placed in the left upper quadrant 20 cm inferior to the xiphoid process. Insufflation took place up to 15 mmHg. No adhesions were seen. A 5 mm subxiphoid incision was made and the medium Yuval retractor was used to elevate the left lobe of liver anteriorly. This was held in place using the fixed arm retractor. An additional 12 mm trocar was placed in the right paramedian location and 2 additional 8 mm trochars were placed in the left upper quadrant one medial and one lateral to the initially placed optical trocar. All of these trochars were placed along the same plane. The initial 5 was then switched to an 8 mm trocar. The robot was then docked appropriately. The 8 mm camera was placed in the left paramedian trocar site down viewing. A fenestrated bipolar was placed in arm 1, arm 3 had the vessel sealer, arm 4 had the small grasper retractor. The hiatus was inspected and there was no visible hiatal hernia. At that point I moved to the distal aspect of the greater curvature the stomach. The short gastric vasculature were divided using the vessel sealer. This dissection took place distally until we were 4 cm from the pylorus. The posterior adhesions were divided as well. The dissection then took place proximally along the stomach until the posterior short gastrics were divided and the fundus of the stomach was fully mobilized. Once the stomach was fully mobilized the blunt tipped 40-Persian bougie dilator was advanced into the stomach and advanced all the way to the prepyloric location. The patient's stomach by palpation seemed to be of average thickness. The first firing of the stapler was a green load, second 2 loads were blue loads, next 2 loads were blue load with seam guard, last load of the stapler was white. The stomach was then placed in the right upper quadrant after it was fully excised. The oral gastric tube was reinserted. The stomach was insufflated with approximately 100 mL of methylene blue. No evidence of leak or obstruction was seen. Pressure was then dropped to 8 mm for 2-3 minutes. The staple line was inspected and no bleeding was seen. Tisseel fibrin glue was then used along the length of the staple line. The robot was then undocked. The da Gabriella laparoscope was used and the stomach was removed from the 12 mm trocar site without difficulty. The fascia at the 12mm site was closed using [id number] 0 Vicryl sutures with the laparoscopic suture passer and Timmy Lorena technique. The insufflation was evacuated. The skin at all 5 incisions were closed using 4-0 Monocryl sutures. Skin glue was then applied. DISPOSITION: Stable to recovery room
[2024-01-26] MEDS: ONDANSETRON 4 MG/2 ML VIAL IVP ONE (13:28)
[2024-01-26] MEDS: hydrALAZINE HCL 20 MG/ML 1 ML VIAL IV ONE (13:42)
[2024-01-26] MEDS: HYDROmorphone 1 MG/ML 1 ML SYRINGE IVP PRN (15:02)
[2024-01-26] MEDS: ALBUTEROL NEBULIZED 2.5 MG/3 ML INHALATION SCH (16:11)
[2024-01-26] MEDS: ACETAMINOPHEN IV (For NPO) 1,000 MG in EMPTY BAG 1 BAG IVPB SCH (17:14)
[2024-01-26] MEDS: 0.9% NACL WITH KCL 20 MEQ/L 1,000 ML IV SCH (18:25)
[2024-01-27 07:41] LABS: African American GFR (CKD) >90 (>60 ml/min/1.73 sqM); Anion Gap 17 mmol/L; Blood Urea Nitrogen 4 mg/dL (7-17); Calcium 9.2 mg/dL (8.4-10.2); Carbon Dioxide 13 mmol/L (22-30); Chloride 109 mmol/L (98-107); Non-African American GFR(CKD) >90 (>60 ml/min/1.73 sqM); Phosphorus 3.6 mg/dL (2.5-4.5); Potassium 4.6 mmol/L (3.5-5.1); Sodium 139 mmol/L (137-145)
[2024-01-27 07:45] LABS: Anisocytosis Slight; Basophils % (A) 1 %; Eosinophils % (A) 0 %; HCT 46.5 % (34.0-46.0); HGB 12.6 gm/dL (11.4-16.0); Hypochromasia Marked; Lymphocytes # (A) 1.7 k/uL (1.0-4.8); Lymphocytes % (A) 22 %; MCH 21.9 pg (25.0-35.0); MCV 81.1 fL (80.0-100.0); Mean Platelet Volume 7.9; Monocytes # (A) 0.3 k/uL (0-1.0); Monocytes % (A) 4 %; Neutrophils # (A) 5.5 k/uL (1.3-7.7); Neutrophils % (A) 72 %; Platelet Count 217 k/uL (150-450); RBC 5.73 m/uL (3.80-5.40); WBC 7.7 k/uL (3.8-10.6)
--- NOTE | 2024-01-27 08:50 | FL ---
EXAMINATION TYPE: FL UGI DATE OF EXAM: 01/27/2024 CLINICAL HISTORY: Status post gastric sleeve Contrast: Omnipaque 350 50 mL The patient ingested contrast without difficulty or delay. Noted are postsurgical changes of gastric sleeve. There is no evidence for leak or obstruction. Contrast is noted within the duodenum. IMPRESSION: Post-surgical change of gastric sleeve without evidence for obstruction or leak at this point in time.
[2024-01-27] MEDS: KETOROLAC 15 MG/ML 1 ML VIAL IVP SCH (09:33)
[2024-01-27] MEDS: PANTOPRAZOLE 40 MG/10 ML VIAL IV SCH (09:33)
[2024-01-27] MEDS: ENOXAPARIN 60 MG/0.6 ML SYRINGE SQ SCH (09:34)
[2024-01-27] MEDS ORDERED: METOCLOPRAMIDE 5 MG/ML 2 ML VIAL IVP PRN (11:20)
--- NOTE | 2024-01-27 12:38 | P.CONS ---
History of Present Illness - Reason for Consult History of DVT - History of Present Illness Patient is a pleasant 23-year-old female admitted for elective sleeve gastrectomy, laparoscopy. Patient successfully underwent surgery. Patient denies any nausea abdominal pain at this time patient is not a bit nauseous yesterday. Patient other medical problems include obesity and had a DVT because of obesity and oral contraceptive pills and patient is still on Eliquis 5 mg twice a day. Patient is presently on therapeutic dose of Lovenox for DVT which can be transition back to Eliquis upon discharge. REVIEW OF SYSTEMS: CONSTITUTIONAL: No fever, no malaise, no fatigue. HEENT: No recent visual problems or hearing problems. Denied any sore throat. CARDIOVASCULAR: No chest pain, orthopnea, PND, no palpitations, no syncope. PULMONARY: No shortness of breath, no cough, no hemoptysis. GASTROINTESTINAL: No diarrhea, no nausea, no vomiting, no abdominal pain. NEUROLOGICAL: No headaches, no weakness, no numbness. HEMATOLOGICAL: Denies any bleeding or petechiae. GENITOURINARY: Denies any burning micturition, frequency, or urgency. MUSCULOSKELETAL/RHEUMATOLOGICAL: Denies any joint pain, swelling, or any muscle pain. ENDOCRINE: Denies any polyuria or polydipsia. The rest of the 14-point review of systems is negative. PHYSICAL EXAMINATION: GENERAL: The patient is alert and oriented x3, not in any acute distress. Well developed, well nourished. HEENT: Pupils are round and equally reacting to light. EOMI. No scleral icterus. No conjunctival pallor. Normocephalic, atraumatic. No pharyngeal erythema. No thyromegaly. CARDIOVASCULAR: S1 and S2 present. No murmurs, rubs, or gallops. PULMONARY: Chest is clear to auscultation, no wheezing or crackles. ABDOMEN: Soft, nontender, nondistended, normoactive bowel sounds. No palpable organomegaly. MUSCULOSKELETAL: No joint swelling or deformity. EXTREMITIES: No cyanosis, clubbing, or pedal edema. NEUROLOGICAL: Gross neurological examination did not reveal any focal deficits. SKIN: No rashes. Assessment and plan -Laparoscopic sleeve gastrectomy patient pain and nausea vomiting are well- controlled at this time further management as per primary service -History of DVT and pulmonary embolism in the past and her oncologist is recom mending to continue Eliquis may be reasonable until she loses weight. Her DVT was about 1 and half years ago. It is appropriate to continue the Lovenox at this time and can be transition to Eliquis upon discharge. 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-unable to read normal print-pt signs own consents,DVT left leg r/t birthcontrol and amanda small PEs-2021 History of Any Multi-Drug Resistant Organisms: None Reported Past Surgical History: No Surgical Hx Reported Additional Past Surgical History / Comment(s): MRI of brain, recent EGD Past Anesthesia/Blood Transfusion Reactions: No Reported Reaction Additional Past Anesthesia/Blood Transfusion Reaction / Comm: no hx blood transfusion Past Psychological History: No Psychological Hx Reported Smoking Status: Never smoker Past Alcohol Use History: None Reported Past Drug Use History: None Reported - Past Family History Mother Family Medical History: No Reported History Father Family Medical History: Deep Vein Thrombosis (DVT) Medications and Allergies Home Medications Medication Instructions Recorded Confirmed Type Folic Acid 1 mg PO DAILY 06/24/23 01/26/24 History Apixaban [Eliquis Starter Pack 5 mg PO BID 07/29/23 01/26/24 History (for VTE)] Allergies Allergy/AdvReac Type Severity Reaction Status Date / Time No Known Allergies Allergy Verified 01/26/24 09:37 Physical Exam Vitals: Vital Signs Temp Pulse Resp BP BP Pulse Ox FiO2 01/27/24 07:39 98 21 01/27/24 07:23 97.3 F L 66 17 134/84 100 01/27/24 04:53 97.8 F 65 13 104/61 100 01/26/24 22:49 97.7 F 82 12 112/68 96 01/26/24 20:00 97 F L 96 14 109/67 96 01/26/24 16:10 99 01/26/24 15:10 74 98 01/26/24 14:55 73 122/78 99 01/26/24 14:40 67 147/83 98 01/26/24 14:25 97.3 F L 70 18 130/80 99 01/26/24 14:15 65 16 150/61 98 01/26/24 14:00 63 16 166/85 98 01/26/24 13:45 66 16 170/91 98 01/26/24 13:30 65 16 157/73 98 01/26/24 13:15 63 16 162/85 100 01/26/24 13:00 61 16 162/79 99 01/26/24 12:45 65 16 158/75 99 Intake and Output 01/26/24 01/27/24 01/27/24 22:59 06:59 14:59 Other: Voiding Method Toilet Toilet # Voids 0 3 1 Results CBC & Chem 7: 01/27/24 06:18 01/27/24 06:18 Labs: Abnormal Lab Results - Last 24 Hours (Table) 01/27/24 01/27/24 Range/Units 06:18 06:18 RBC 5.73 H (3.80-5.40) m/uL Hct 46.5 H (34.0-46.0) % MCH 21.9 L (25.0-35.0) pg MCHC 27.0 L (31.0-37.0) g/dL RDW 17.0 H (11.5-15.5) % Chloride 109 H (98-107) mmol/L Carbon Dioxide 13 L (22-30) mmol/L BUN 4 L (7-17) mg/dL
[2024-01-27 12:54] VITALS: BMI 58.6
--- NOTE | 2024-01-27 14:50 | P.PN ---
Subjective Progress Note Date: 01/27/24 CHIEF COMPLAINT: Morbid obesity HISTORY OF PRESENT ILLNESS: Patient is postop day #1 status post sleeve g astrectomy. Patient had nausea this morning after her upper GI she did have episode of vomiting. She denies any flatus. She has been up and ambulating. She denies any difficulty urinating. Upper GI reports no evidence of obstruction or leak. Afebrile. WBC 7.7 Hgb 12.6 platelets 217 sodium 139 potassium 4.6 creatinine 0.59 magnesium 2.0 PHYSICAL EXAM: VITAL SIGNS: Reviewed. GENERAL: Well-developed in no acute distress. ABDOMEN: Soft. Nondistended. Tender at incision sites. Incision sites clean dry and intact NEUROLOGIC: Alert and oriented. Cranial nerves II through XII grossly intact. ASSESSMENT: 1. Morbid obesity status post sleeve gastrectomy PLAN: -Start bariatric clear liquid diet -Toradol added for pain management -Reglan as needed added for nausea and vomiting -Encourage patient to ambulate -Continue IV fluids -Abdominal binder ordered -GI prophylaxis Protonix and DVT prophylaxis Lovenox Physician Operations Specialist note has been reviewed by physician. Signing provider agrees with the documented findings, assessment, and plan of care. Objective - Vital Signs Vital signs: Vital Signs Temp 97.3 F L 01/27/24 07:23 Pulse 66 01/27/24 07:23 Resp 17 01/27/24 07:23 BP 134/84 01/27/24 07:23 Pulse Ox 98 01/27/24 07:39 FiO2 21 01/27/24 07:39 Intake & Output 01/26/24 01/27/24 01/27/24 18:59 06:59 18:59 Intake Total 1400 Output Total 10 Balance 1390 Weight 175 kg Intake: IV 1400 Output: Estimated Blood Loss 10 Other: Voiding Method Toilet Toilet # Voids 0 3 - Labs CBC & Chem 7: 01/27/24 06:18 01/27/24 06:18 Labs: Abnormal Lab Results - Last 24 Hours (Table) 01/27/24 01/27/24 Range/Units 06:18 06:18 RBC 5.73 H (3.80-5.40) m/uL Hct 46.5 H (34.0-46.0) % MCH 21.9 L (25.0-35.0) pg MCHC 27.0 L (31.0-37.0) g/dL RDW 17.0 H (11.5-15.5) % Chloride 109 H (98-107) mmol/L Carbon Dioxide 13 L (22-30) mmol/L BUN 4 L (7-17) mg/dL
[2024-01-27] MEDS: 0.9% NACL WITH KCL 20 MEQ/L 1,000 ML IV SCH (17:11)
[2024-01-28] MEDS ORDERED: bisacodyL 5 MG TABLET.DR PO PRN (08:00)
[2024-01-28] MEDS: DEXAMETHASONE SOD PHOSPHATE 4 MG/ML 1 ML VIAL IVP SCH (12:15)
--- NOTE | 2024-01-28 13:06 | P.PN ---
Subjective Progress Note Date: 01/28/24 CHIEF COMPLAINT: Morbid obesity HISTORY OF PRESENT ILLNESS: Patient is postop day #2 status post sleeve g astrectomy. Patient reports that the nausea is better today. No further vomiting. Her pain is controlled. She has had minimal intake with liquids. Afebrile. PHYSICAL EXAM: VITAL SIGNS: Reviewed. GENERAL: Well-developed in no acute distress. ABDOMEN: Soft. Nondistended. Tender at incision sites. Incision sites clean dry and intact NEUROLOGIC: Alert and oriented. Cranial nerves II through XII grossly intact. ASSESSMENT: 1. Morbid obesity status post sleeve gastrectomy PLAN: -Scheduled Decadron ordered for dysphagia -Continue bariatric clear liquid diet -Continue pain management -Encourage patient to ambulate -Continue IV fluids -Abdominal binder ordered -GI prophylaxis Protonix and DVT prophylaxis Lovenox Physician Scalehouse Attendant note has been reviewed by physician. Signing provider agrees with the documented findings, assessment, and plan of care. Objective - Vital Signs Vital signs: Vital Signs Temp 97.4 F L 01/28/24 07:30 Pulse 66 01/28/24 07:30 Resp 18 01/28/24 07:30 BP 116/64 01/28/24 07:30 Pulse Ox 94 L 01/28/24 07:30 FiO2 21 01/27/24 07:39 Intake & Output 01/27/24 01/28/24 01/28/24 18:59 06:59 18:59 Weight 175 kg Other: Voiding Method Toilet Toilet # Voids 1 3 - Labs CBC & Chem 7: 01/27/24 06:18 01/27/24 06:18
--- NOTE | 2024-01-29 05:16 | P.PN ---
Subjective Progress Note Date: 01/28/24 - Reason for Consult History of DVT - History of Present Illness Patient is a pleasant 23-year-old female admitted for elective sleeve gastrectomy, laparoscopy. Patient successfully underwent surgery. Patient denies any nausea abdominal pain at this time patient is not a bit nauseous yesterday. Patient other medical problems include obesity and had a DVT because of obesity and oral contraceptive pills and patient is still on Eliquis 5 mg twice a day. Patient is presently on therapeutic dose of Lovenox for DVT which can be transition back to Eliquis upon discharge. 01/28/2024 Patient is seen today status post sleeve gastrectomy and reports to tolerating bariatric clear diet. Patient reports she continues to have abdominal discomfort and denies passing gas or bowel movement as of yet. Patient is voiding with no difficulty. Encouraged incentive spirometer use at least 10 times per hour. P atient with generalized weakness has been encouraged to increase activity as tolerated and evaluated by PT and will be planning on going home with sister for help. Patient does not qualify for rehab. Patient is afebrile with no reported chest pain or shortness of breath. Review of systems: Constitutional: No reports of fatigue, fever, or chills Cardiovascular: No reports of chest pain or palpitations Respiratory: No reports of shortness of breath or cough GI: No reports of nausea, vomiting, or diarrhea, reports tolerating clear liquids, reports no bowel movements or passing gas, reports continued abdominal pain : No reports of dysuria or retention Neurovascular: reports of generalized generalized weakness All medications have been reviewed PHYSICAL EXAMINATION: GENERAL: The patient is alert and oriented x3, not in any acute distress. Well developed, well nourished. Morbidly obese HEENT: Pupils are round and equally reacting to light. EOMI. No scleral icterus. No conjunctival pallor. Normocephalic, atraumatic. No pharyngeal erythema. No thyromegaly. CARDIOVASCULAR: S1 and S2 present. No murmurs, rubs, or gallops. PULMONARY: Chest is clear to auscultation, no wheezing or crackles. ABDOMEN: Soft, obese nontender, nondistended, normoactive bowel sounds. No palpable organomegaly. MUSCULOSKELETAL: No joint swelling or deformity. EXTREMITIES: No cyanosis, clubbing, or pedal edema. NEUROLOGICAL: Gross neurological examination did not reveal any focal deficits. Diffusely weak SKIN: No rashes. Assessment: -status post Laparoscopic sleeve gastrectomy -History of DVT and pulmonary embolism in the past and her sociology instructor is recommending to continue Eliquis may be reasonable until she loses weight. Her DVT was about 1 and half years ago. It is appropriate to continue the Lovenox at this time and can be transition to Eliquis upon discharge. -DVT prophylaxis: On Lovenox -Morbid obesity with a BMI 58.7 -History of optic nerve hypoplasia -Generalized weakness -GI prophylaxis -Full code Plan: Continue with current medications and management per general surgery. Patient is status post sleeve gastrectomy currently tolerating bariatric clear diet. Patient reports continued abdominal discomfort Patient with generalized weakness was evaluated by physical therapy as patient wanted to go to rehab on discharge although does not qualify and patient plans on going to stay with her sister for help Patient to continue on Lovenox for now and okay to transition to Eliquis on discharge Encouraged incentive spirometer use at least 10 times every hour while awake Encouraged to increase activity as tolerated We will continue to follow with general surgery during hospitalization. Thank you kindly for this consultation The impression and plan of care has been dictated by Linda Madrigal, Nurse Practitioner as directed. Dr. Billie MD I have performed a history and examination and MDM of this patient, discussed the same with the dictator, and agree with the dictator's assessment and plan as written ,documented as a scribe. Based on total visit time, I have performed more than 50% of the visit. Objective - Vital Signs Vital signs: Vital Signs Temp 97.4 F L 01/28/24 07:30 Pulse 66 01/28/24 07:30 Resp 18 01/28/24 07:30 BP 116/64 01/28/24 07:30 Pulse Ox 94 L 01/28/24 07:30 FiO2 21 01/27/24 07:39 Intake & Output 01/27/24 01/28/24 01/28/24 18:59 06:59 18:59 Weight 175 kg Other: Voiding Method Toilet Toilet # Voids 1 3 - Labs CBC & Chem 7: 01/27/24 06:18 01/27/24 06:18
[2024-01-29 07:36] VITALS: RESP 18
--- NOTE | 2024-01-29 13:34 | P.DS ---
Providers Date of admission: 01/26/24 08:56 Expected date of discharge: 01/29/24 Attending physician: Isiah Eli Consults: 01/26/24 12:36 Consult Physician Routine Consulting Provider: Akbar Camargo Consult Reason/Comments: Medical management Do you want consulting provider notified?: Yes Primary care physician: Jessenia [facility] Course: Discharge diagnosis 1. Morbid obesity status post sleeve gastrectomy Hospital course This is a 23-year-old female with known morbid obesity. She is status post laparoscopic sleeve gastrectomy. Patient tolerated surgery well. Upper GI shows no evidence of leak or obstruction. Patient did have some dysphagia which improved with Decadron. She is tolerating diet. Her pain is controlled. She has been up and ambulating. She is afebrile. She did have a bowel movement. She is stable for discharge. Please refer to chart for any further details. Physician Can Runner note has been reviewed by physician. Signing provider agrees with the documented findings, assessment, and plan of care. Patient Condition at Discharge: Stable Plan - Discharge Summary Discharge Rx Participant: No New Discharge Prescriptions: New bisacodyL [Dulcolax] 5 mg PO DAILY PRN #10 tab PRN Reason: Constipation Simethicone 40 mg/0.6 ml Drops [Mylicon Drops] 40 mg PO PCHS PRN #30 ml PRN Reason: Gas Ondansetron Odt [Zofran Odt] 4 mg PO Q8HR PRN #9 tab PRN Reason: Nausea Omeprazole [PriLOSEC] 40 mg PO DAILY #90 cap Continue Folic Acid 1 mg PO DAILY No Action Apixaban [Eliquis Starter Pack (for VTE)] 5 mg PO BID Discharge Medication List Folic Acid 1 mg PO DAILY 06/24/23 [History] Apixaban [Eliquis Starter Pack (for VTE)] 5 mg PO BID 07/29/23 [History] Omeprazole [PriLOSEC] 40 mg PO DAILY #90 cap 01/29/24 [Rx] Ondansetron Odt [Zofran Odt] 4 mg PO Q8HR PRN #9 tab 01/29/24 [Rx] Simethicone 40 mg/0.6 ml Drops [Mylicon Drops] 40 mg PO PCHS PRN #30 ml 01/29/24 [Rx] bisacodyL [Dulcolax] 5 mg PO DAILY PRN #10 tab 01/29/24 [Rx] Follow up Appointment(s)/Referral(s): [facility] [[facility]-STAFF] - 02/03/24 Activity/Diet/Wound Care/Special Instructions: No lifting over 10 pounds You may shower. No soaking or tub baths for 2 weeks Very light activity until you are reevaluated at your follow up appointment with your surgeon No straws or carbonated beverages Discharge Disposition: HOME SELF-CARE
--- NOTE | 2024-01-29 13:46 | P.PN ---
Subjective Progress Note Date: 01/29/24 - Reason for Consult History of DVT - History of Present Illness Patient is a pleasant 23-year-old female admitted for elective sleeve gastrectomy, laparoscopy. Patient successfully underwent surgery. Patient denies any nausea abdominal pain at this time patient is not a bit nauseous yesterday. Patient other medical problems include obesity and had a DVT because of obesity and oral contraceptive pills and patient is still on Eliquis 5 mg twice a day. Patient is presently on therapeutic dose of Lovenox for DVT which can be transition back to Eliquis upon discharge. 01/28/2024 Patient is seen today status post sleeve gastrectomy and reports to tolerating bariatric clear diet. Patient reports she continues to have abdominal discomfort and denies passing gas or bowel movement as of yet. Patient is voiding with no difficulty. Encouraged incentive spirometer use at least 10 times per hour. P atient with generalized weakness has been encouraged to increase activity as tolerated and evaluated by PT and will be planning on going home with sister for help. Patient does not qualify for rehab. Patient is afebrile with no reported chest pain or shortness of breath. 01/29/2024 Patient is seen and evaluated in follow-up today status post sleeve gastrectomy day 2 and feeling much improved. Patient was able to get up and get in the shower report passing gas and did have a bowel movement today. Patient is voiding with no difficulties. Patient encouraged to use incentive spirometer at least 10 times every hour while awake. Patient plans on discharging today and instructed patient to bring incentive spirometer and continue using. Continue with diet restrictions per surgery and close outpatient follow-up. Patient is medically stable once cleared by surgery. Patient is afebrile with no reports of chest pain or shortness of breath. No reported nausea or vomiting. Review of systems: Constitutional: No reports of fatigue, fever, or chills Cardiovascular: No reports of chest pain or palpitations Respiratory: No reports of shortness of breath or cough GI: No reports of nausea, vomiting, or diarrhea, reports tolerating clear liquids, reports passing gas and did have a bowel movement this morning : No reports of dysuria or retention Neurovascular: reports of generalized generalized weakness but feels stronger All medications have been reviewed PHYSICAL EXAMINATION: GENERAL: The patient is alert and oriented x3, not in any acute distress. Well developed, well nourished. Morbidly obese HEENT: Pupils are round and equally reacting to light. EOMI. No scleral icterus. No conjunctival pallor. Normocephalic, atraumatic. No pharyngeal erythema. No thyromegaly. CARDIOVASCULAR: S1 and S2 present. No murmurs, rubs, or gallops. PULMONARY: Chest is clear to auscultation, no wheezing or crackles. ABDOMEN: Soft, obese nontender, nondistended, normoactive bowel sounds. No palpable organomegaly. MUSCULOSKELETAL: No joint swelling or deformity. EXTREMITIES: No cyanosis, clubbing, or pedal edema. NEUROLOGICAL: Gross neurological examination did not reveal any focal deficits. Diffusely weak SKIN: No rashes. Assessment: -status post Laparoscopic sleeve gastrectomy -History of DVT and pulmonary embolism in the past and her hospitality services manager is recommending to continue Eliquis may be reasonable until she loses weight. Her DVT was about 1 and half years ago. -DVT prophylaxis: On Lovenox -Morbid obesity with a BMI 58.7 -History of optic nerve hypoplasia -Generalized weakness -GI prophylaxis -Full code Plan: Continue with current medications and management per general surgery. Patient is status post sleeve gastrectomy currently tolerating bariatric clear diet. Patient reports had a bowel movement today and is passing gas. Patient with generalized weakness was evaluated by physical therapy as patient wanted to go to rehab on discharge although does not qualify and patient plans on going to stay with her sister for help. Patient reports to feeling stronger and able to get up and shower today Patient to continue on Lovenox for now and okay to transition to Eliquis on discharge. Resume Eliquis on discharge Encouraged incentive spirometer use at least 10 times every hour while awake. Patient encouraged to take home and continue using once discharged Encouraged to increase activity as tolerated We will continue to follow with general surgery during hospitalization. Thank you kindly for this consultation Patient is being discharged today. The impression and plan of care has been dictated by Linda Madrigal, Nurse Practitioner as directed. Dr. Billie MD I have performed a history and examination and MDM of this patient, discussed the same with the dictator, and agree with the dictator's assessment and plan as written ,documented as a scribe. Based on total visit time, I have performed more than 50% of the visit. Objective - Vital Signs Vital signs: Vital Signs Temp 97.5 F L 04/04/24 06:56 Pulse 58 L 01/29/24 06:56 Resp 18 01/29/24 06:56 BP 103/65 01/29/24 06:56 Pulse Ox 97 01/29/24 06:56 FiO2 21 01/27/24 07:39 Intake & Output 01/28/24 01/29/24 01/29/24 18:59 06:59 18:59 Intake Total 310 Balance 310 Intake: Oral 310 Other: Voiding Method Toilet # Voids 2 - Labs CBC & Chem 7: 01/27/24 06:18 01/27/24 06:18
[2024-01-29 14:22] VITALS: BP 96/62; PULSE 57; TEMP 97.7
== END 2024-01-29 16:18 | disposition home or self-care (01) | DRG 621 ==
LOC: 2ORMAIN 08:56 → 4SSUR 14:01
PROVIDERS: ADMIT Surgery; ATTEND Surgery
PROC: 8E0W4CZ Robotic Assisted Procedure of Trunk Region, Percutaneous Endoscopic Approach (ICD-10-PCS; 2024-01-26)
PROC: 0DB64Z3 Excision of Stomach, Percutaneous Endoscopic Approach, Vertical (ICD-10-PCS; principal; 2024-01-26 10:10)
DX: E66.01 Morbid (severe) obesity due to excess calories (principal); H54.7 Unspecified visual loss; R13.10 Dysphagia, unspecified; K29.70 Gastritis, unspecified, without bleeding; Z68.43 Body mass index [BMI] 50.0-59.9, adult; Z79.01 Long term (current) use of anticoagulants; Z86.711 Personal history of pulmonary embolism; Z86.718 Personal history of other venous thrombosis and embolism
CPT/HCPCS: 74240; 80051; 81025; 82310; 82565; 83735; 84100; 84520; 85025; 88307; 94760

== ENCOUNTER → 2024-02-03 | Outpatient (CLI) | payer MEDICAID, OTHER ==
[2024-02-03 15:13] VITALS: BP 110/72; PULSE 82; TEMP 98.2; BMI 57.2
--- NOTE | 2024-02-03 15:53 | P.BASOAP ---
Subjective Progress Note Date: 02/03/24 Principal diagnosis: Morbid obesity Patient returns 1 week postop for sleeve gastrectomy. Living with her grandma. Patient is legally blind. Still having some issues knowing how much liquids she is getting in. Sounds like she is drinking about 45 to 50 ounces per day. She has not started protein shakes yet because of the taste apparently. Mild discomfort when drinking. Otherwise doing well. Heart rate normal. No fevers. Thinks her pain is improving. Objective - Vital Signs Vital signs: Vital Signs Temp 98.2 F 02/03/24 14:44 Pulse 82 02/03/24 14:44 Resp BP 110/72 02/03/24 14:44 Pulse Ox FiO2 Intake & Output 02/02/24 02/03/24 02/03/24 18:59 06:59 18:59 Weight 170.551 kg - Exam Abdomen: Soft, nondistended, mild incisional tenderness, incisions clean and dry Assessment/Plan (1) Morbid obesity Narrative/Plan: 23-year-old female doing well at this time. Patient with history of previous PE DVT. She is back on her blood thinners. She is trying to be as active as can be. Mild discomfort when drinking but thinks it is improving. Continue encouraging increased liquid and protein intake. Recheck 1 to 2 weeks. Plan: Date: 02/03/24 Initial Weight: 183.251 kg Initial BMI: 61.4 Current Weight: 170.551 kg Current BMI: 57.2 Type of Surgery: Total Volume in Band: Previous Volume: Volume Removed: Volume Added: Band Size:
== END ==
LOC: BARWHC3 13:49
PROVIDERS: ATTEND Surgery
DX: E66.01 Morbid (severe) obesity due to excess calories (principal); Z71.3 Dietary counseling and surveillance; Z86.711 Personal history of pulmonary embolism; Z86.718 Personal history of other venous thrombosis and embolism; Z79.01 Long term (current) use of anticoagulants; Z98.84 Bariatric surgery status; Z68.43 Body mass index [BMI] 50.0-59.9, adult
CPT/HCPCS: 97803; 99211

== ENCOUNTER → 2024-02-20 | Outpatient (CLI) | payer MEDICAID, OTHER ==
[2024-02-20 12:45] VITALS: BP 106/72; PULSE 79; RESP 16; TEMP 97.7
[2024-02-20] MEDS: SODIUM CHLORIDE 0.9% 1,000 ML IV SCH (13:18)
[2024-02-20 13:28] LABS: ALT 112 U/L (4-34); AST 54 U/L (14-36); African American GFR (CKD) >90 (>60 ml/min/1.73 sqM); Albumin 3.8 g/dL (3.5-5.0); Alkaline Phosphatase 89 U/L (38-126); Anion Gap 10 mmol/L; Blood Urea Nitrogen 4 mg/dL (7-17); Calcium 9.4 mg/dL (8.4-10.2); Carbon Dioxide 26 mmol/L (22-30); Chloride 102 mmol/L (98-107); Glucose 95 mg/dL (74-99); Non-African American GFR(CKD) >90 (>60 ml/min/1.73 sqM); Potassium 3.4 mmol/L (3.5-5.1); Sodium 138 mmol/L (137-145); Total Bilirubin 0.9 mg/dL (0.2-1.3); Total Protein 6.7 g/dL (6.3-8.2)
[2024-02-20 13:33] LABS: Anisocytosis Slight; Basophils % (A) 1 %; Eosinophils # (A) 0.1 k/uL (0-0.7); Eosinophils % (A) 2 %; HCT 40.9 % (34.0-46.0); HGB 12.5 gm/dL (11.4-16.0); Hypochromasia Moderate; Lymphocytes # (A) 0.9 k/uL (1.0-4.8); Lymphocytes % (A) 18 %; MCH 22.4 pg (25.0-35.0); MCHC 30.6 g/dL (31.0-37.0); Mean Platelet Volume 8.5; Microcytosis Moderate; Monocytes # (A) 0.3 k/uL (0-1.0); Monocytes % (A) 6 %; Neutrophils # (A) 3.7 k/uL (1.3-7.7); Neutrophils % (A) 72 %; Platelet Count 217 k/uL (150-450); RDW 18.8 % (11.5-15.5); WBC 5.1 k/uL (3.8-10.6)
[2024-02-20 13:34] LABS: MCV 73.2 fL (80.0-100.0)
[2024-02-20] MEDS: ONDANSETRON 4 MG/2 ML VIAL IVP ONE (13:59)
[2024-02-20] MEDS: DEXAMETHASONE SOD PHOSPHATE 4 MG/ML 1 ML VIAL IVP STA (14:06)
== END ==
LOC: PROCWHC3 12:15
PROVIDERS: ATTEND Surgery
DX: E86.0 Dehydration (principal)
CPT/HCPCS: 80053; 85025; 96361; 96374; 96375; J1100; J2405

== ENCOUNTER → 2024-03-02 | Outpatient (CLI) | payer MEDICAID, OTHER ==
[2024-03-02 14:28] VITALS: BP 118/69; PULSE 92; RESP 16; TEMP 97.5; BMI 54.8
--- NOTE | 2024-03-02 16:27 | P.BASOAP ---
Subjective Progress Note Date: 03/02/24 Principal diagnosis: Morbid obesity Patient returns for recheck. Last seen 2 weeks ago. Doing well. Did come in for fluids a week or so ago. Doing well now. She has lost 15 pounds since her last visit. She has moved back to home. She had basic labs when she came in for her fluid hydration. Objective - Vital Signs Vital signs: Vital Signs Temp 97.5 F L 03/02/24 14:04 Pulse 92 03/02/24 14:04 Resp 16 03/02/24 14:04 BP 118/69 03/02/24 14:04 Pulse Ox FiO2 Intake & Output 03/01/24 03/02/24 03/02/24 18:59 06:59 18:59 Weight 163.747 kg - Exam Abdomen: Soft, nontender, nondistended Assessment/Plan (1) Morbid obesity Narrative/Plan: 24-year-old female with history of morbid obesity. Doing better at this time. Was having some issues with decreased fluid intake but that has improved. Continue antiacids. Follow-up 1 month. May begin increasing exercise. May start using the pool at the gym. Plan: Date: 03/02/24 Initial Weight: 183.251 kg Initial BMI: 61.4 Current Weight: 163.747 kg Current BMI: 54.8 Type of Surgery: Vertical Sleeve Gastrectomy Total Volume in Band: Previous Volume: Volume Removed: Volume Added: Band Size:
== END ==
LOC: BARWHC3 13:51
PROVIDERS: ATTEND Surgery
DX: E66.01 Morbid (severe) obesity due to excess calories (principal); Z71.3 Dietary counseling and surveillance; Z68.43 Body mass index [BMI] 50.0-59.9, adult
CPT/HCPCS: 97803; 99211

== ENCOUNTER → 2024-03-12 | Outpatient (CLI) | payer MEDICAID, OTHER ==
--- NOTE | 2024-03-13 02:47 | US ---
EXAMINATION TYPE: US venous doppler duplex LE DATE OF EXAM: 03/12/2024 10:57 AM COMPARISON: US 07/29/2022 CLINICAL INDICATION: Female, 24 years old with history of M79.662 PAIN IN LEFT LOWER LIMB, [id number] Javier n in right lower; Pt states bilateral leg numbness, prior DVT in 2021, currently on blood thinners SIDE PERFORMED: Bilateral TECHNIQUE: The lower extremity deep venous system is examined utilizing real time linear array sonog yossi with graded compression, doppler sonography and color-flow sonography. VESSELS IMAGED: Common Femoral Vein Deep Femoral Vein Greater Saphenous Vein * Femoral Vein Popliteal Vein Small Saphenous Vein * Proximal Calf Veins (* superficial vessels) Grayscale, color doppler, spectral doppler imaging performed of the deep veins of the lower extremiti es. There is normal flow, compressibility, vascular waveforms. Right Leg: Negative for DVT Left Leg: Negative for DVT IMPRESSION: Resolution of previously seen bilateral DVT.
== END | disposition home or self-care (01) ==
LOC: RADUSWWP 10:18
PROVIDERS: ATTEND Surgery
DX: M79.662 Pain in left lower leg (principal); M79.661 Pain in right lower leg
CPT/HCPCS: 93970

== ENCOUNTER → 2024-03-16 | Outpatient (CLI) | payer MEDICAID, OTHER | END | disposition home or self-care (01) | LOC: LABWHC1 16:12 | PROVIDERS: ATTEND Surgery | DX: E66.01 Morbid (severe) obesity due to excess calories (principal); K90.89 Other intestinal malabsorption; E55.9 Vitamin D deficiency, unspecified | CPT/HCPCS: 36415; 82306; 82607; 82746; 83540; 84425 ==

== ENCOUNTER → 2024-03-30 | Outpatient (CLI) | payer MEDICAID, OTHER ==
[2024-03-30 13:50] VITALS: BP 98/74; PULSE 106; RESP 16; TEMP 97.7; BMI 54.6
--- NOTE | 2024-03-30 14:41 | P.BASOAP ---
Subjective Progress Note Date: 03/30/24 Principal diagnosis: Morbid obesity Patient doing well today. Returns for 1 month recheck. Last seen on 03/02. She has lost 2 pounds. Still tired at times[place] [facility] She has noticed significant decrease in size of her clothing. No heartburn. No nausea or vomiting. Good liquid intake. Protein intake has not been tallied on a daily basis. Objective - Vital Signs Vital signs: Vital Signs Temp 97.7 F 03/30/24 13:46 Pulse 106 H 03/30/24 13:46 Resp 16 03/30/24 13:46 BP 98/74 03/30/24 13:46 Pulse Ox FiO2 Intake & Output 03/29/24 03/30/24 03/30/24 18:59 06:59 18:59 Weight 162.84 kg - Exam Abdomen: Soft, nontender, nondistended Assessment/Plan (1) Morbid obesity Narrative/Plan: Patient doing well at this time. Continue dietary and exercise regimen. Recheck 1 month. Check 3-month labs at that time. Continue encouraging protein intake. Plan: Date: 03/30/24 Initial Weight: 183.251 kg Initial BMI: 61.4 Current Weight: 162.84 kg Current BMI: 54.6 Type of Surgery: Total Volume in Band: Previous Volume: Volume Removed: Volume Added: Band Size:
== END ==
LOC: BARWHC3 13:31
PROVIDERS: ATTEND Surgery
DX: E66.01 Morbid (severe) obesity due to excess calories (principal); Z71.3 Dietary counseling and surveillance; Z68.43 Body mass index [BMI] 50.0-59.9, adult
CPT/HCPCS: 99211

== ENCOUNTER → 2024-05-04 | Outpatient (CLI) | payer MEDICAID, OTHER ==
[2024-05-04 13:14] VITALS: BP 94/69; PULSE 92; RESP 16; TEMP 98.3; BMI 53.8
--- NOTE | 2024-05-04 14:23 | P.BASOAP ---
Subjective Progress Note Date: 05/04/24 Principal diagnosis: Morbid obesity Patient returns for recheck. Was last seen 1 month ago. She has lost 5 pounds in the last 1 month. Going to the [employer] and swimming in the lap pool most days of the week. Denies GERD, no vomiting. Still taking antiacids daily. Objective - Vital Signs Vital signs: Vital Signs Temp 98.3 F 05/04/24 13:11 Pulse 92 05/04/24 13:11 Resp 16 05/04/24 13:11 BP 94/69 05/04/24 13:11 Pulse Ox FiO2 Intake & Output 05/03/24 05/04/24 05/04/24 18:59 06:59 18:59 Weight 160.572 kg - Exam Abdomen: Soft, nontender, nondistended Assessment/Plan (1) Morbid obesity Narrative/Plan: 24-year-old female doing well after recent sleeve gastrectomy. Check 3-month labs. Continue exercise regimen. Try switching to every other day antiacids. Follow-up 6 weeks. Plan: Date: 05/04/24 Initial Weight: 183.251 kg Initial BMI: 61.4 Current Weight: 160.572 kg Current BMI: 53.8 Type of Surgery: Vertical Sleeve Gastrectomy Total Volume in Band: Previous Volume: Volume Removed: Volume Added: Band Size:
== END ==
LOC: BARWHC3 13:00
PROVIDERS: ATTEND Surgery
DX: E66.01 Morbid (severe) obesity due to excess calories (principal); Z90.3 Acquired absence of stomach [part of]; Z71.3 Dietary counseling and surveillance; Z68.43 Body mass index [BMI] 50.0-59.9, adult
CPT/HCPCS: 97803; 99211

== ENCOUNTER → 2024-05-05 | Outpatient (CLI) | payer MEDICAID, OTHER ==
[2024-05-05 10:01] LABS: Anisocytosis Slight; HCT 40.3 % (34.0-46.0); Hypochromasia Marked; MCH 24.4 pg (25.0-35.0); MCHC 29.9 g/dL (31.0-37.0); Mean Platelet Volume 10.1; Platelet Count 228 k/uL (150-450); RBC 4.93 m/uL (3.80-5.40); RDW 16.2 % (11.5-15.5); WBC 4.7 k/uL (3.8-10.6)
[2024-05-05 10:02] LABS: MCV 81.6 fL (80.0-100.0)
[2024-05-05 16:10] LABS: ALT 11 U/L (8-44); AST 14 U/L (13-35); Albumin 4.1 g/dL (3.8-4.9); Albumin/Globulin Ratio 1.64 Ratio (1.60-3.17); Alkaline Phosphatase 77 U/L (41-126); BUN/Creat Ratio 15.33 Ratio (12.00-20.00); Blood Urea Nitrogen 9.2 mg/dL (9.0-27.0); Calcium 9.4 mg/dL (8.7-10.3); Chloride 107 mmol/L (96-109); Globulin 2.5 g/dL (1.6-3.3); Glucose 80 mg/dL (70-110); Iron 45 UG/DL (50-170); Potassium 4.1 mmol/L (3.5-5.5); Sodium 141 mmol/L (135-145); Total Bilirubin 0.6 mg/dL (0.3-1.2); Total Protein 6.6 g/dL (6.2-8.2)
== END | disposition home or self-care (01) ==
LOC: LABWHC1 07:40
PROVIDERS: ATTEND Surgery
DX: E66.01 Morbid (severe) obesity due to excess calories (principal); K90.89 Other intestinal malabsorption; E55.9 Vitamin D deficiency, unspecified
CPT/HCPCS: 36415; 80053; 82306; 82607; 82746; 83540; 84425; 85027

== ENCOUNTER → 2024-05-21 | Outpatient (CLI) | payer MEDICAID, OTHER ==
--- NOTE | 2024-05-21 15:44 | XR ---
EXAM TYPE: LUMBAR SPINE X RAY SERIES COMPARISON: NONE HISTORY: Pain TECHNIQUE: 4 views are submitted. FINDINGS: Alignment is anatomic. The pedicles are intact. The transverse processes are intact. There is no s pondylolysis or spondylolisthesis. Slight curvature of the spine. Vertebral body disc spaces fairly well preserved given positioning.. IMPRESSION: 1. No acute process.
--- NOTE | 2024-05-21 18:15 | MR ---
EXAMINATION TYPE: MR lumbar spine wo con DATE OF EXAM: 05/21/2024 COMPARISON: Lumbosacral spine radiograph 05/21/2024, CT abdomen and pelvis 07/26/2022 HISTORY: Loss of feeling in legs. TECHNIQUE: Multiplanar, multisequence images of the lumbar spine were acquired without IV contrast. FINDINGS: The lumbar vertebral bodies do have preserved heights and alignment. 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 No disc desiccation identified. The conus medullaris and the distal spinal cord do appear unremarkable with regards to their signal intensity and morphology. L1-L2: No significant disc pathology is identified. The spinal canal and neural foramen are patent. L2-L3: No significant disc pathology is identified. The spinal canal and neural foramen are patent. L3-L4: No significant disc pathology is identified. The spinal canal and neural foramen are patent. L4-L5: No significant disc pathology is identified. The spinal canal patent. Minimal bilateral facet arthropathy with minimal narrowing of the bilateral neural foramen. L5-S1: No significant disc pathology is identified. The spinal canal and neural foramen are patent Other significant findings: None. IMPRESSION: 1. No definitive evidence for disc herniation or significant spinal canal stenosis. 2. Minimal facet arthropathy L4-L5 with minimal narrowing the bilateral neural foramen.
== END | disposition home or self-care (01) ==
LOC: RADMRIMAIN 14:18
PROVIDERS: ATTEND Family Medicine
DX: M48.061 Spinal stenosis, lumbar region without neurogenic claudication (principal); M47.816 Spondylosis without myelopathy or radiculopathy, lumbar region; R20.0 Anesthesia of skin
CPT/HCPCS: 72110; 72148

== ENCOUNTER → 2024-06-22 | Outpatient (CLI) | payer MEDICAID, OTHER ==
[2024-06-22 12:59] VITALS: BP 110/71; PULSE 70; TEMP 97.9; BMI 53.0
--- NOTE | 2024-06-22 13:03 | P.BASOAP ---
Subjective Progress Note Date: 06/22/24 Principal diagnosis: Morbid obesity Patient returns for recheck. Last seen 05/04. Still exercising regularly. No nausea or vomiting. No GERD. Patient had her labs checked last visit. Iron was 45 BUN was 36 vitamin D was 11. She was given prescriptions for supplementation. Patient states she ran out of her other prescriptions. She stopped her antiacids. No symptoms. Objective - Vital Signs Vital signs: Vital Signs Temp 97.9 F 06/22/24 12:54 Pulse 70 06/22/24 12:54 Resp BP 110/71 06/22/24 12:54 Pulse Ox FiO2 Intake & Output 06/21/24 06/22/24 06/22/24 18:59 06:59 18:59 Weight 158.304 kg - Exam Abdomen: Soft, nontender, nondistended Assessment/Plan (1) Morbid obesity Narrative/Plan: 24-year-old female doing well at this time. Continue dietary and exercise regimen. Continue vitamin supplementation. Follow-up 6 weeks. Check 6-month labs at that time. Continue holding antiacids for now. Plan: Date: 06/22/24 Initial Weight: 183.251 kg Initial BMI: 61.4 Current Weight: 158.304 kg Current BMI: 53.0 Type of Surgery: Total Volume in Band: Previous Volume: Volume Removed: Volume Added: Band Size:
== END ==
LOC: BARWHC3 12:45
PROVIDERS: ATTEND Surgery
CPT/HCPCS: 99211

== ENCOUNTER → 2024-08-03 | Outpatient (CLI) | payer MEDICAID, OTHER ==
[2024-08-03 13:15] VITALS: BP 92/62; PULSE 79; RESP 16; TEMP 98.1; BMI 52.6
--- NOTE | 2024-08-03 15:40 | P.BASOAP ---
Subjective Progress Note Date: 08/03/24 Principal diagnosis: Morbid obesity Patient returns for recheck. Last seen 06/22. Has lost 3 pounds since her last visit. Patient is going to counseling now. She has been swimming a little bit less than previous. No antiacids. No GERD. Overall feels quite well. She underwent sleeve in January. Objective - Vital Signs Vital signs: Vital Signs Temp 98.1 F 08/03/24 13:10 Pulse 79 08/03/24 13:10 Resp 16 08/03/24 13:10 BP 92/62 08/03/24 13:10 Pulse Ox FiO2 Intake & Output 08/02/24 08/03/24 08/03/24 18:59 06:59 18:59 Weight 156.943 kg - Exam Abdomen: Soft, nontender, nondistended Assessment/Plan (1) Morbid obesity Narrative/Plan: 24-year-old female doing well after previous sleeve gastrectomy. Check 6-month labs at this time. Continue exercise and dietary regimen. Follow-up 6 weeks. Plan: Date: 08/03/24 Initial Weight: 183.251 kg Initial BMI: 61.4 Current Weight: 156.943 kg Current BMI: 52.6 Type of Surgery: Vertical Sleeve Gastrectomy Total Volume in Band: Previous Volume: Volume Removed: Volume Added: Band Size:
[2024-08-03 19:42] LABS: HCT 39.8 % (37.2-46.3); HGB 11.9 g/dL (12.0-15.0); MCH 22.8 pg (27.0-32.0); MCHC 29.9 g/dL (32.0-37.0); MCV 76.2 FL (80.0-97.0); Mean Platelet Volume 11.6 FL (9.5-12.2); NRBC Per 100 WBC 0 X 10*3/uL (0.00-0.01); Platelet Count 276 X 10*3/uL (140-440); RBC 5.22 X 10*6/uL (4.10-5.20); RDW 15.7 % (11.5-14.5); WBC 7.82 X 10*3/uL (4.50-10.00)
[2024-08-03 20:32] LABS: BUN/Creat Ratio 20.14 Ratio (12.00-20.00); Blood Urea Nitrogen 14.1 mg/dL (9.0-27.0); Carbon Dioxide 23.8 mmol/L (21.6-31.8); Chloride 105 mmol/L (96-109); Glucose 79 mg/dL (70-110); Iron 21 UG/DL (50-170); Potassium 3.8 mmol/L (3.5-5.5); Sodium 140 mmol/L (135-145)
[2024-08-03 20:33] LABS: ALT 11 U/L (8-44); AST 11 U/L (13-35); Albumin 4.2 g/dL (3.8-4.9); Alkaline Phosphatase 80 U/L (41-126); Calcium 9.5 mg/dL (8.7-10.3); Total Bilirubin 0.3 mg/dL (0.3-1.2); Total Protein 7.2 g/dL (6.2-8.2)
== END ==
LOC: BARWHC3 12:49
PROVIDERS: ATTEND Surgery
DX: E66.01 Morbid (severe) obesity due to excess calories
CPT/HCPCS: 80053; 82306; 82607; 82746; 83036; 83540; 84425; 85027; 99211

== ENCOUNTER → 2024-09-21 | Outpatient (CLI) | payer MEDICAID, OTHER ==
[2024-09-21 14:09] VITALS: BP 111/73; PULSE 66; RESP 16; TEMP 97.9; BMI 51.3
--- NOTE | 2024-09-21 14:34 | P.BASOAP ---
Subjective Progress Note Date: 09/21/24 Principal diagnosis: Morbid obesity Patient returns for recheck. Last seen 6 to 8 weeks ago. Doing well since her last visit. She has lost 8 pounds. Not taking antiacids. Still seeing her counselor. Diagnosed with depression and anxiety. Also being treated for PTSD. Exercising slightly less than previous because of transportation issues. Objective - Vital Signs Vital signs: Vital Signs Temp 97.9 F 09/21/24 14:06 Pulse 66 09/21/24 14:06 Resp 16 09/21/24 14:06 BP 111/73 09/21/24 14:06 Pulse Ox FiO2 Intake & Output 09/20/24 09/21/24 09/21/24 18:59 06:59 18:59 Weight 153.314 kg - Exam Abdomen: Soft, nontender, nondistended Assessment/Plan (1) Morbid obesity Narrative/Plan: 24-year-old female doing well after previous sleeve gastrectomy. She is having ongoing weight loss. She has been exercising somewhat less. Says that she will start working on that more with her family. Follow-up in October. Plan: Date: 09/21/24 Initial Weight: 183.251 kg Initial BMI: 61.4 Current Weight: 153.314 kg Current BMI: 51.3 Type of Surgery: Vertical Sleeve Gastrectomy Total Volume in Band: Previous Volume: Volume Removed: Volume Added: Band Size:
== END ==
LOC: BARWHC3 13:55
PROVIDERS: ATTEND Surgery
DX: E66.01 Morbid (severe) obesity due to excess calories (principal); Z98.84 Bariatric surgery status; Z68.43 Body mass index [BMI] 50.0-59.9, adult
CPT/HCPCS: 99211

== ENCOUNTER → 2024-11-02 | Outpatient (CLI) | payer MEDICAID, OTHER ==
[2024-11-02 15:25] VITALS: BP 109/83; PULSE 81; RESP 16; TEMP 97.3; BMI 53.1
--- NOTE | 2024-11-02 15:40 | P.BASOAP ---
Subjective Progress Note Date: 11/02/24 Principal diagnosis: Morbid obesity Patient here for routine follow-up. Feels well. No nausea or vomiting. Still feels restricted. States she is not eating any differently. Unfortunately she did gain 12 pounds since her last visit. She was surprised by that. Denies heartburn. Does not take antiacids. Still going to the gym at least 3 times per week for swimming. Objective - Vital Signs Vital signs: Vital Signs Temp 97.3 F L 11/02/24 15:22 Pulse 81 11/02/24 15:22 Resp 16 11/02/24 15:22 BP 109/83 11/02/24 15:22 Pulse Ox FiO2 Intake & Output 11/01/24 11/02/24 11/02/24 18:59 06:59 18:59 Weight 158.757 kg - Exam Abdomen: Soft, nontender, nondistended Assessment/Plan (1) Morbid obesity Narrative/Plan: Patient doing well at this time. Monitor increased weight recently. Encourage patient to consider other forms of exercise and to continue with her swimming. Plan follow-up 6 to 8 weeks. Repeat labs in January. Plan: Date: 11/02/24 Initial Weight: 183.251 kg Initial BMI: 61.4 Current Weight: 158.757 kg Current BMI: 53.1 Type of Surgery: Vertical Sleeve Gastrectomy Total Volume in Band: Previous Volume: Volume Removed: Volume Added: Band Size:
== END ==
LOC: BARWHC3 14:59
PROVIDERS: ATTEND Surgery
DX: E66.01 Morbid (severe) obesity due to excess calories (principal); Z68.43 Body mass index [BMI] 50.0-59.9, adult
CPT/HCPCS: 99211

== ENCOUNTER → 2024-12-21 | Outpatient (CLI) | payer MEDICAID, OTHER ==
[2024-12-21 13:28] VITALS: BP 130/88; PULSE 104; RESP 16; TEMP 98.5; BMI 51.2
--- NOTE | 2024-12-21 13:43 | P.BASOAP ---
Subjective Progress Note Date: 12/21/24 Principal diagnosis: Morbid obesity Patient returns for recheck. Last seen in October. Patient has lost 13 pounds since her last visit. She has done that despite not exercising as much recently because of having a cold. Bariatric rodriguez doing well. No nausea vomiting. No heartburn. No antiacid use. Objective - Vital Signs Vital signs: Vital Signs Temp 98.5 F 12/21/24 13:26 Pulse 104 H 12/21/24 13:26 Resp 16 12/21/24 13:26 BP 130/88 12/21/24 13:26 Pulse Ox FiO2 Intake & Output 12/20/24 12/21/24 12/21/24 18:59 06:59 18:59 Weight 152.861 kg - Exam Abdomen: Soft, nontender, nondistended Assessment/Plan (1) Morbid obesity Narrative/Plan: Patient doing well after sleeve gastrectomy last January. Continue dietary and exercise regimen. Plan follow-up in January. Check 1 year labs at that time. Plan: Date: 12/21/24 Initial Weight: 183.251 kg Initial BMI: 61.4 Current Weight: 152.861 kg Current BMI: 51.2 Type of Surgery: Vertical Sleeve Gastrectomy Total Volume in Band: Previous Volume: Volume Removed: Volume Added: Band Size:
== END ==
LOC: BARWHC3 13:12
PROVIDERS: ATTEND Surgery
DX: E66.01 Morbid (severe) obesity due to excess calories (principal); Z68.43 Body mass index [BMI] 50.0-59.9, adult
CPT/HCPCS: 99211

== ENCOUNTER → 2025-02-01 | Outpatient (CLI) | payer MEDICAID, OTHER ==
[2025-02-01 13:45] VITALS: BP 136/80; PULSE 89; TEMP 98.2; BMI 51.3
--- NOTE | 2025-02-01 13:54 | P.BASOAP ---
Subjective Progress Note Date: 02/01/25 Principal diagnosis: Morbid obesity Patient returns for recheck. Doing well since last visit. Unfortunately did gain 1 pound. Had surgery last month for a ablation tubal ligation. Stopped going the gym last month because of the surgery. No nausea vomiting. No GERD. No antiacid use. Patient is in a singing competition this week. Objective - Vital Signs Vital signs: Vital Signs Temp 98.2 F 02/01/25 13:38 Pulse 89 02/01/25 13:38 Resp BP 136/80 02/01/25 13:38 Pulse Ox FiO2 Intake & Output 01/31/25 02/01/25 02/01/25 18:59 06:59 18:59 Weight 153.314 kg - Exam Abdomen: Soft, nontender, nondistended Assessment/Plan (1) Morbid obesity Narrative/Plan: Patient doing well at this time. Increase exercise regimen. Continue monitoring caloric intake. Check 1 year labs. Follow-up 2 months. Plan: Date: 02/01/25 Initial Weight: 183.251 kg Initial BMI: 61.4 Current Weight: 153.314 kg Current BMI: 51.3 Type of Surgery: Total Volume in Band: Previous Volume: Volume Removed: Volume Added: Band Size:
== END ==
LOC: BARWHC3 13:30
PROVIDERS: ATTEND Surgery
DX: E66.01 Morbid (severe) obesity due to excess calories (principal); Z68.43 Body mass index [BMI] 50.0-59.9, adult
CPT/HCPCS: 99211

== ENCOUNTER → 2025-04-05 | Outpatient (CLI) | payer MEDICAID, OTHER ==
[2025-04-05 13:30] VITALS: BP 93/70; PULSE 80; RESP 16; TEMP 97.7; BMI 50.8
--- NOTE | 2025-04-05 13:44 | P.BASOAP ---
Subjective Progress Note Date: 04/05/25 Principal diagnosis: Morbid obesity Patient returns for recheck. Doing well since last visit. She did when the singing competition she did recently. Walking more. Scheduled to do a 5K walk in June. No vomiting. No nausea. No GERD symptoms. Patient says she is watching what she eats but does not record calorie numbers. She recently moved out of her family's home and is living with her friend now. Never had her annual labs drawn. Objective - Vital Signs Vital signs: Vital Signs Temp 97.7 F 04/05/25 13:27 Pulse 80 04/05/25 13:27 Resp 16 04/05/25 13:27 BP 93/70 04/05/25 13:27 Pulse Ox FiO2 Intake & Output 04/04/25 04/05/25 04/05/25 18:59 06:59 18:59 Weight 151.5 kg - Exam Abdomen: Soft, nontender, nondistended Assessment/Plan (1) Morbid obesity Narrative/Plan: Patient doing well at this time. Monitor caloric intake. Increase walking distance. Check 1 year labs. Recheck 3 months. Plan: Date: 04/05/25 Initial Weight: 183.251 kg Initial BMI: 61.4 Current Weight: 151.5 kg Current BMI: 50.8 Type of Surgery: Vertical Sleeve Gastrectomy Total Volume in Band: Previous Volume: Volume Removed: Volume Added: Band Size:
== END ==
LOC: BARWHC3 13:11
PROVIDERS: ATTEND Surgery
DX: E66.01 Morbid (severe) obesity due to excess calories (principal); Z68.43 Body mass index [BMI] 50.0-59.9, adult
CPT/HCPCS: 99211